=== PATIENT | female | born 1935 | race Caucasian/White ===

== ENCOUNTER 2019-08-11 14:37 | Inpatient (IN) | payer MEDICARE, OTHER ==
[~2019-08-11] VITALS: Ht 167.6 cm; Wt 77.8 kg
--- OUTSIDE RECORDS SUMMARY | ~2019-08-11 | XMS | Clinical Summary ---
Demographics + + + | Address | [address] | | | [place] [address] | + + + | Home Phone | | + + + | Preferred Language | Unknown | + + + | Marital Status | Unknown | + + + | Christian Affiliation | Unknown | + + + | Race | Unknown | + + + | Ethnic Group | Unknown | + + + Author + + + | Author | [facility] (Historical as of | | | 11-20-18) | + + + | Organization | [facility] (Historical as of | | | 11-20-18) | + + + | Address | Unknown | + + + | Phone | Unavailable | + + + Support + + +---------+ + | Name | Relationship | Address | Phone | + + +---------+ + | Message,Detailed | ECON | Unknown | | + + +---------+ + | Jose Bear | ECON | Unknown | | + + +---------+ + Care Team Providers + +------+ + | Care Sales Department Manager Name | Role | Phone | + +------+ + | Rojelio Green MD | PP | | + +------+ + Allergies No Known Allergies Current Medications + + +-------+---------+------+------+-------+ | Prescription | Sig. | Disp. | Refills | Star | End | Statu | | | | | | t | Date | s | | | | | | Date | | | + + +-------+---------+------+------+-------+ | | Take 1 tablet by | | | 10/1 | | Activ | | acetaminophen-codein | mouth as needed. | | | 12/24 | | e | | e (TYLENOL #3) | | | | 16 | | | | 300-30 MG per tablet | | | | | | | + + +-------+---------+------+------+-------+ Active Problems + + + | Problem | Noted Date | + + + | CLL (chronic lymphocytic leukemia) | 02/07/2016 | + + + Family History + + +------+ + | Medical History | Relation | Name | Comments | + + +------+ + | Heart Disease | Father | | | + + +------+ + + +------+ + + | Relation | Name | Status | Comments | + +------+ + + | Father | | | | | | | (Age | | | | | 89) | | + +------+ + + | Maternal Grandfather | | | | + +------+ + + | Maternal Grandmother | | | | + +------+ + + | Mother | | | | + +------+ + + | Paternal Grandfather | | | | + +------+ + + | Paternal Grandmother | | | | + +------+ + + Social History + +-------+ +--------+------+ | Tobacco Use | Types | Packs/Day | Years | Date | | | | | Used | | + +-------+ +--------+------+ | Never Smoker | | | | | + +-------+ +--------+------+ + + +---------+ + | Alcohol Use | Drinks/We | oz/Week | Comments | | | ek | | | + + +---------+ + | Yes | 1 | 0.6 | Occ | | | Standard | | | | | drinks or | | | | | | | | | | equivalen | | | | | t | | | + + +---------+ + + + + | Sex Assigned at | Date Recorded | | | | + + + | Not on file | | + + + Last Filed Vital Signs + + + + | Vital Sign | Reading | Time Taken | + + + + | Blood Pressure | 118/74 | 02/05/2016 3:17 PM PDT | + + + + | Pulse | 78 | 02/05/2016 3:17 PM PDT | + + + + | Temperature | 36.8 C (98.2 F) | 02/05/2016 3:17 PM PDT | + + + + | Respiratory Rate | 16 | 02/05/2016 3:17 PM PDT | + + + + | Oxygen Saturation | 94% | 02/05/2016 3:17 PM PDT | + + + + | Inhaled Oxygen | - | - | | Concentration | | | + + + + | Weight | 80.3 kg (177 lb 0.6 | 02/05/2016 3:17 PM PDT | | | oz) | | + + + + | Height | 167.6 cm (5' 6") | 02/05/2016 3:17 PM PDT | + + + + | Body Mass Index | 28.58 | 02/05/2016 3:17 PM PDT | + + + + Plan of Treatment + + + + + | Health Maintenance | Due Date | Last Done | Comments | + + + + + | Vaccine: | | | | | Dtap/Tdap/Td (1 - | 7 | | | | Tdap) | | | | + + + + + | Vaccine: Zoster (1 | | | | | of 2) | 8 | | | + + + + + | DEXA SCAN SCREENING | | | | | | 3 | | | + + + + + | Vaccine: | | | | | Pneumococcal 65+ | 3 | | | | Low/Medium Risk (1 | | | | | of 2 - PCV13) | | | | + + + + + | Vaccine: Influenza | | | | | (Season Ended) | 0 | | | + + + + + Results Not on filefrom Last 3 Months Insurance + +--------+ +------+-------+ + | Payer | Benefi | Subscriber | Type | Phone | Address | | | t Plan | ID | | | | | | / | | | | | | | Group | | | | | + +--------+ +------+-------+ + | CIGNA | CIGNA | [id number] | | | | | | - | | | | | | | GENERI | | | | | | | C | | | | | + +--------+ +------+-------+ + | MEDICARE | MEDICA | [id number] | | | [address] | | | RE | | | | [place] [address] | | | IP-OP | | | | | + +--------+ +------+-------+ + + +--------+ +--------+ + + | Guarantor Name | Accoun | Relation to | Date | Phone | Billing Address | | | t Type | Patient | of | | | | | | | | | | + +--------+ +--------+ + + | NAINA BEAR | Person | Self | [birth year] | Home: | [address] | | | al/Fam | | 1936 | [phone] | [place] [address] | | | candy | | | [phone] | | + +--------+ +--------+ + +
--- OUTSIDE RECORDS SUMMARY | ~2019-08-11 | XMS | Encounter Summary ---
Demographics + + + | Address | [address] | | | [place] [address] | + + + | Home Phone | | + + + | Preferred Language | Unknown | + + + | Marital Status | Single | + + + | Yarsani Affiliation | Unknown | + + + | Race | Unknown | + + + | Ethnic Group | Other Race | + + + Author + + + | Author | [facility] | + + + | Organization | [facility] | + + + | Address | Unknown | + + + | Phone | Unavailable | + + + Care Team Providers + +------+ + | Care Residential Worker Name | Role | Phone | + +------+ + PCP | Unavailable | + +------+ + Encounter Details +--------+ + + + + | Date | Type | Department | Care Team | Description | +--------+ + + + + | 12/10/ | Hospital | Dermatopathology | | | | 2017 | Encounter | [address] | | | | | | Mailcode: CH16D | | | | | | [facility] | | | | | | and Healing, | | | | | | [address] | | | | | | Floor [place], [place] | | | | | | [address] | | | | | | [phone] | | | +--------+ + + + [...] on file | | + + + + + + + | Job Start Date | Occupation | Industry | + + + + | Not on file | Not on file | Not on file | + + + + + + + + | Travel History | Travel Start | Travel End | + + + + + + | No recent travel history available. | + + documented as of this encounter Plan of Treatment Not on filedocumented as of this encounter Procedures + +--------+ + + + | Procedure Name | Priori | Date/Time | Associated Diagnosis | Comments | | | ty | | | | + +--------+ + + + | DERM PATHOLOGY | Routin | 12/10/2016 | Other specified | Results for this | | | e | | follicular disorders | procedure are in the | | | | | Other skin changes | results section. | | | | | due to chronic | | | | | | exposure to | | | | | | nonionizing | | | | | | radiation | | + +--------+ + + + documented in this encounter Results DERM PATHOLOGY (12/10/2016) + + + + + + | Component | Value | Ref Range | Performed | Pathologist | | | | | At | Signature | + + + + + + | DERMATOPATH | SOURCE OF SPECIMEN:A Lt. | | [facility] | | | OLOGY(WET | inferolateral eyebrow, | | DERMATOPATH | | | MNT) | shave biopsy | | OLOGY | | | | CLINICAL DESCRIPTION:6 x | | | | | | 5 mm pink | | | | | | telangiectatic centrally | | | | | | ulcerated papule with | | | | | | rolledborders; r/o BCC. | | | | | | GROSS | | | | | | DESCRIPTION:Received in | | | | | | formalin is a specimen | | | | | | labeled Naina Bear:A: | | | | | | Specimen is labeled "L | | | | | | inferolateral eyebrow" | | | | | | and consists of | | | | | | anirregular shave of | | | | | | papular white-gongora skin, | | | | | | [id number]. The surgical | | | | | | margin isinked blue; the | | | | | | tissue is bisected, and | | | | | | entirely submitted in | | | | | | cassette A1. | | | | | | MICROSCOPIC | | | | | | DESCRIPTION:There is a | | | | | | mildly thinned | | | | | | epidermis, beneath which | | | | | | is solar elastosis | | | | | | anddilated vessels. | | | | | | There is also a dilated | | | | | | follicular infundibulum. 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 | | | | | | NOTE: The changes | | | | | | are subtle, although the | | | | | | superficial portion of | | | | | | MILIUM ispossible. There | | | | | | is no evidence of | | | | | | malignancy. Deeper | | | | | | sections wereobtained, | | | | | | showing similar | | | | | | findings.KPW: [id number] | | | | | | My electronic | | | | | | signature indicates that | | | | | | I have personally | | | | | | reviewed alldiagnostic | | | | | | slides, the gross and/or | | | | | | microscopic portion of | | | | | | thisreport and | | | | | | formulated the final | | | | | | diagnosis. | | | | | | Rendering Diagnostician: | | | | | | Nabeel Acuna | | | | | | Sj | | | | | | lety Santana 12/15/2016 | | | | | | 4:51PM | | | | + + + + + + + + | Specimen | + + | | + + + + + | Narrative | Performed At | + + + | | | + + + + + + + + | Performing | Address | City/State/Zipcode | Phone Number | | Organization | | | | + + + + + | [facility] | Mail[address] | [place] [address] | | | DERMATOPATHOLOGY | [address] | | | + + + + + documented in this encounter Visit Diagnoses + + | Diagnosis | + + | Other specified follicular disorders | + + | Other skin changes due to chronic exposure to nonionizing radiation | + + documented in this encounter
--- OUTSIDE RECORDS SUMMARY | ~2019-08-11 | XMS | Encounter Summary ---
Demographics + + + | Address | [address] | | | [place] [address] | + + + | Home Phone | | + + + | Preferred Language | Unknown | + + + | Marital Status | | + + + | Druze Affiliation | 1076 | + + + | Race | Unknown | + + + | Ethnic Group | Unknown | + + + Author + + + | Author | [facility] | | | and [place] | + + + | Organization | [facility] | | | and [place] | + + + | Address | Unknown | + + + | Phone | Unavailable | + + + Support + + +---------+ + | Name | Relationship | Address | Phone | + + +---------+ + | Jose BENNETT | Unknown | | + + +---------+ + Care Team Providers + +------+ + | Care Chief Radiation Therapist Name | Role | Phone | + [...] 2015 | | [address] | [address] | | | | [address] | [place] | | | | | [address] | [place] [address] | | | | | [phone] | [phone] | | | | | | | [...] +--------+ + + + | EXTERNAL LAB: CBC | Routin | 02/05/2016 | | Results for this | | | e | 1:29 PM | | procedure are in the | | | | PDT | | results section. | + +--------+ + + + documented in this encounter Results External Lab: CBC (02/05/2016 1:29 PM PDT) + + + [...] + + + + + + | Red Blood | 4.61 | 3.70 - 5.10 | EXTERNAL | | | Cells | | 10*6/uL | LAB | | | Counted | | | [...]
--- OUTSIDE RECORDS SUMMARY | ~2019-08-11 | XMS | Encounter Summary ---
Demographics + + + | Address | [address] | | | [place] [address] | + + + | Home Phone | | + + + | Preferred Language | Unknown | + + + | Marital Status | Single | + + + | Presybeterian Affiliation | Unknown | + + + | Race | Unknown | + + + | Ethnic Group | Other Race | + + + Author + + + | Author | [facility] | + + + | Organization | [facility] | + + + | Address | Unknown | + + + | Phone | Unavailable | + + + Care Team Providers + +------+ + | Care Regional Geodetic Advisor Name | Role | Phone | + +------+ + PCP | Unavailable | + +------+ + Encounter Details +--------+ + + + + | Date | Type | Department | Care Team | Description | +--------+ + + + + | 10/21/ | Documentati | NON-[facility] | Unknown . | | | 2019 | on | Department | | | +--------+ + + + [...]
--- OUTSIDE RECORDS SUMMARY | ~2019-08-11 | XMS | Encounter Summary ---
Demographics + + + | Address | [address] | | | [place] [address] | + + + | Home Phone | | + + + | Preferred Language | Unknown | + + + | Marital Status | Single | + + + | Advent Affiliation | Unknown | + + + | Race | Unknown | + + + | Ethnic Group | Other Race | + + + Author + + + | Author | [facility] | + + + | Organization | Replaced By [facility] | + + + | Address | Unknown | + + + | Phone | Unavailable | + + + Care Team Providers + +------+ + | Care Automatic Profile Sander Operator Name | Role | Phone | [...]
--- OUTSIDE RECORDS SUMMARY | ~2019-08-11 | XMS | Encounter Summary ---
Demographics + + + | Address | [address] | | | [place] [address] | + + + | Home Phone | | + + + | Preferred Language | Unknown | + + + | Marital Status | | + + + | Episcopal Affiliation | 1076 | + + + | Race | Unknown | + + + | Ethnic Group | Unknown | + + + Author + + + | Author | [facility] | | | and [place] | + + + | Organization | [facility] | | | and [...] Team Providers + +------+ + | Care Installers Mechanical Name | Role | Phone | + +------+ + PCP | Unavailable | + +------+ + Encounter Details +--------+ + + + + | Date | Type | Department | Care Team | Description | +--------+ + + + + | 10/29/ | Hospital | [facility] | | | | 1999 | Encounter | MED CTR XRAY [address] | | | | | | [address] | | | | | | [place] [address] | | | | | | [phone] | | | +--------+ + + + [...]
--- OUTSIDE RECORDS SUMMARY | ~2019-08-11 | XMS | Clinical Summary ---
Demographics + + + | Address | [address] | | | [place] [address] | + + + | Home Phone | | + + + | Preferred Language | Unknown | + + + | Marital Status | | + + + | Catholic Affiliation | 1076 | + + + | Race | Unknown | + + + | Ethnic Group | Unknown | + + + Author + + + | Author | [facility] | | | and [place] | + + + | Organization | [facility] | | | [...] Team Providers + +------+ + | Care Acid Cutter Name | Role | Phone | + +------+ + | Cornelius Fyo | PCP | | | MD | | | + +------+ + Allergies Not on File Medications Not on file Active Problems Not on file Family History + + +------+ + | Medical History | Relation | Name | Comments | + + +------+ + | Heart disease | Father | | | + + +------+ + + +------+ + + | Relation | Name | Status | Comments | + +------+ + + | Father | | | | | | | (Age | | | | | 89) | | + +------+ + + | Father | | | | + +------+ + [...] recent travel history available. | + + Last Filed Vital Signs + + + + + | Vital Sign | Reading | Time Taken | Comments | + + + + + | Blood Pressure | 118/74 | 02/05/2016 3:24 PM | | | | | PDT | | + + + + + | Pulse | 78 | 02/05/2016 3:24 PM | | | | | PDT | | + + + + + | Temperature | 36.8 C (98.2 F) | 02/05/2016 3:24 PM | | | | | PDT | | + + + + + | Respiratory Rate | 16 | 02/05/2016 3:24 PM | | | | | PDT | | + + + + + | Oxygen Saturation | - | - | | + + + + + | Inhaled Oxygen | - | - | | | Concentration | | | | + + + + + | Weight | 80.3 kg (177 lb 0.6 | 02/05/2016 3:24 PM | | | | oz) | PDT | | + + + + + | Height | 167.6 cm (5' 6") | 02/05/2016 3:24 PM | | | | | PDT | | + + + + + | Body Mass Index | 28.57 | 02/05/2016 3:24 PM | | | | | PDT | | + + + + + Plan of Treatment + + + + + | Health Maintenance | Due Date | Last Done | Comments | + + + + + | Vaccine: | | | | | Dtap/Tdap/Td (1 - | 9 | | | | Tdap) | | | | + + + + + | Vaccine: Zoster (1 | | | | | of 2) | 8 | | | + + + + + | Vaccine: | | | | | Pneumococcal 65+ (1 | 3 | | | | of 2 - PCV13) | | | | + + + + + | Vaccine: Influenza | | | | | (Season Ended) | 0 | | | + + + + + Results Not on filefrom Last 3 Months Insurance + +--------+ +--------+ +---------+--------+ | Payer | Benefi | Subscriber | Effect | Phone | Address | Type | | | t Plan | ID | laine | | | | | | / | | Dates | | | | | | Group | | | | | | + +--------+ +--------+ +---------+--------+ | MEDICARE | MEDICA | [id number] | 07/06/19 | [phone] | | Medica | | | RE | | 15-Pre | 5 | | re | | | PART A | | sent | | | | | | AND B | | | | | | + +--------+ +--------+ +---------+--------+ | CIGNA | CIGNA | [id number] | 01/26/ | [phone] | | Indemn | | | MDCR | | 2019-P | 1 | | ity | | | SUPPLE | | resent | | | | | | MENT | | | | | | | | SOLUTI | | | | | | | | ONS | | | | | | + +--------+ +--------+ +---------+--------+ + +--------+ +--------+ + + | Guarantor Name | Accoun | Relation to | Date | Phone | Billing Address | | | t Type | Patient | of | | | | | | | | | | + +--------+ +--------+ + + | Naina Bear | Person | Self | [birth year] | | [address] | | | al/Fam | | 1936 | [phone] | [place] [address] | | | candy | | | 4 (Home) | | + +--------+ +--------+ + + Advance Directives + + + + + | Type | Date Recorded | Patient | Explanation | | | | Metal Temperer | | + + + + + | Power of | | | | | Director Life Insurance | | | | + + + + + | Advance | | | | | Directive | | | | + + + + +
--- OUTSIDE RECORDS SUMMARY | ~2019-08-11 | XMS | Encounter Summary ---
Demographics + + + | Address | [address] | | | [place] [address] | + + + | Home Phone | | + + + | Preferred Language | Unknown | + + + | Marital Status | | + + + | Worship Affiliation | 1076 | + + + | Race | Unknown | + + + | Ethnic Group | Unknown | + + + Author + + + | Author | [facility] | | | and [place]ias | + + + | Organization | [facility] | | | [...] Team Providers + +------+ + | Care Cellophaner Name | Role | Phone | + +------+ + | Cornelius Foy | PCP | | | MD | | | + +------+ + Encounter Details +--------+ + + + + | Date | Type | Department | Care Team | Description | +--------+ + + + + | 02/04/ | Orders Only | [place] [facility] | oRjelio Green, | | | 2015 | | [address] | [address] | | | | [address] | [place] | | | | | [address] | [place] [address] | | | | | [phone] | [phone] | | | | | | | [...]
--- OUTSIDE RECORDS SUMMARY | ~2019-08-11 | XMS | Encounter Summary ---
Demographics + + + | Address | [address] | | | [place] [address] | + + + | Home Phone [...] Author + + + | Author | [facility] | + + + | Organization | [facility] | + + + | Address | Unknown | + + + | Phone | Unavailable | + + + Care Team Providers + +------+ + | Care Client Relationship Executive Name | Role | Phone | + [...] [facility] | | | | | | [facility] | | | | | | and Healing, | | | | | | Building [address], [address] | | | | | | Floor [place], [place] | | | | | | [address] | | | | | | [phone] | | | +--------+ + + + [...] skin, | | | | | | [id number]. The surgical | | | | | [...] [facility] | Mailcode [address] | [place] [address] | | | DERMATOPATHOLOGY | [address] | | | + + + + + documented in this encounter Visit Diagnoses + + | Diagnosis | + + | Other specified follicular disorders | + + | Other skin changes due to chronic exposure to nonionizing radiation | + + documented in this encounter
--- OUTSIDE RECORDS SUMMARY | ~2019-08-11 | XMS | Clinical Summary ---
Demographics + + + | Address | [address] | | | [place] [address] | + + + | Home Phone | | + + + | Preferred Language | Unknown | + + + | Marital Status | | + + + | Christian Affiliation | 1076 | + + + | Race | Unknown | + + + | Ethnic Group | Unknown | + + + Author + + + | Author | [facility] | | | and [place]ias | + + + | Organization | [facility] | | | and [...] Team Providers + +------+ + | Care Gericare Aide Teacher Name | Role | Phone | + [...] +--------+ +---------+--------+ | MEDICARE | MEDICA | [id number] | 07/06/19 | [phone] | | Medica | | | RE | | 15-Pre | 5 | | re | | | PART A | | sent | | | | | | AND B | | | | | | + +--------+ +--------+ +---------+--------+ | CIGNA | CIGNA | [id number] | 01/26/ | [phone] | | Indemn [...] Person | Self | [birth year] | | [address] | | | al/Fam | | 1936 | [phone] | [place] [address] | | | candy | | | 4 (Home) | | + +--------+ +--------+ + + Advance Directives + + + + + | Type | Date Recorded | Patient | Explanation | | | | Deckhand Engineer | | + + + + + | Power of | | | | | Blanket Folder | | | | + + + + + | Advance | | | | | Directive | | | | + + + + +
--- OUTSIDE RECORDS SUMMARY | ~2019-08-11 | XMS | Encounter Summary ---
Demographics + + + | Address | [address] | | | [place] [address] | + + + | Home Phone | | + + + | Preferred Language | Unknown | + + + | Marital Status | | + + + | Spiritism Affiliation | 1076 | + + + | Race | Unknown | + + + | Ethnic Group | Unknown | + + + Author + + + | Author | [facility] | | | and [place]ias | + + + | Organization | [facility] | | [...] Team Providers + +------+ + | Care Engineering Designer Name | Role | Phone | + +------+ + PCP | Unavailable | + +------+ + Encounter Details +--------+ + + + + | Date | Type | Department | Care Team | Description | +--------+ + + + + | 10/29/ | Hospital | [facility] | | | | 1999 | Encounter | MED CTR XRAY [address] | | | | | | [place] | | | | | | [place] [address] | | | | | | [phone] | | | +--------+ + + + [...]
--- OUTSIDE RECORDS SUMMARY | ~2019-08-11 | XMS | Clinical Summary ---
Demographics + + + | Address | [address] | | | [place] [address] | + + + | Home Phone | | + + + | Preferred Language | Unknown | + + + | Marital Status | Unknown | + + + | Yazdanism Affiliation | Unknown | + + + | Race | Unknown | + + + | Ethnic Group | Unknown | + + + Author + + + | Author | [facility] (Historical as of | | | 11-20-18) | + + + | Organization | [facility] (Historical as of | | | 11-20-18) [...] Team Providers + +------+ + | Care Parking Control Officer Name | Role | Phone | + [...] +------+-------+ + | CIGNA | CIGNA | [id number] | | | | | | - | | | | | | | GENERI | | | | | | | C | | | | | + +--------+ +------+-------+ + | MEDICARE | MEDICA | [id number] | | | [address] | | | RE | | | | [place] [phone] | | | IP-OP | | | [...] | Self | [birth year] | Home: | [address] | | | al/Fam | | 1936 | [phone] | [place] [address] | | | candy | | | [phone] | | + +--------+ +--------+ + +
--- OUTSIDE RECORDS SUMMARY | ~2019-08-11 | XMS | Encounter Summary ---
Demographics + + + | Address | [address] | | | [place] [address] | + + + | Home Phone | | + + + | Preferred Language | Unknown | + + + | Marital Status | Single | + + + | Quaker Affiliation | Unknown | + + + | Race | Unknown | + + + | Ethnic Group | Other Race | + + + Author + + + | Author | [facility] | + + + | Organization | [facility] | + + + | Address | Unknown | + + + | Phone | Unavailable | + + + Care Team Providers + +------+ + | Care Greenstone Polisher Operator Name | Role | Phone | [...]
--- OUTSIDE RECORDS SUMMARY | ~2019-08-11 | XMS | Encounter Summary ---
Demographics + + + | Address | [address] | | | [place] [address] | + + + | Home Phone | | + + + | Preferred Language | Unknown | + + + | Marital Status | Single | + + + | Anabaptism Affiliation | Unknown | + + + | Race | Unknown | + + + | Ethnic Group | Other Race | + + + Author + + + | Author | [facility] | + + + | Organization | [facility] | + + + | Address | Unknown | + + + | Phone | Unavailable | + + + Care Team Providers + +------+ + | Care Finish Mender Name | Role | Phone | + [...]
--- OUTSIDE RECORDS SUMMARY | ~2019-08-11 | XMS | Encounter Summary ---
Demographics + + + | Address | [address] | | | [place] [address] | + + + | Home Phone | | + + + | Preferred Language | Unknown | + + + | Marital Status | Single | + + + | Episcopal Affiliation | Unknown | + + + | Race | Unknown | + + + | Ethnic Group | Other Race | + + + Author + + + | Author | [facility] | + + + | Organization | [facility] | + + + | Address | Unknown | + + + | Phone | Unavailable | + + + Care Team Providers + +------+ + | Care 21 Dealer Name | Role | Phone | + [...]
--- OUTSIDE RECORDS SUMMARY | ~2019-08-11 | XMS | Clinical Summary ---
Demographics + + + | Address | [address] | | | [place] [address] | + + + | Home Phone | | + + + | Preferred Language | Unknown | + + + | Marital Status | Unknown | + + + | Uatsdin Affiliation | Unknown | + + + | Race | Unknown | + + + | Ethnic Group | Unknown | + + + Author + + + | Author | [facility] [employer] (Historical as of | | | 11-20-18) | + + + | Organization | [facility] [employer] (Historical as of | | | 11-20-18) [...] Team Providers + +------+ + | Care Export Freight Manager Name | Role | Phone | [...] +------+-------+ + | CIGNA | CIGNA | [id number] | | | | | | - | | | | | | | GENERI | | | | | | | C | | | | | + +--------+ +------+-------+ + | MEDICARE | MEDICA | [id number] | | | [address] | | | RE | | | | [place] [address] | | | IP-OP | | | [...] | Self | [birth year] | Home: | [address] | | | al/Fam | | 1936 | [phone] | [place] [address] | | | candy | | | [phone] | | + +--------+ +--------+ + +
--- OUTSIDE RECORDS SUMMARY | ~2019-08-11 | XMS | Clinical Summary ---
Demographics + + + | Address | [address] | | | [place] [address] | + + + | Home Phone | | + + + | Preferred Language | Unknown | + + + | Marital Status | Single | + + + | Latter Day Affiliation | Unknown | + + + | Race | Unknown | + + + | Ethnic Group | Other Race | + + + Author + + + | Author | JOZEF Terry [facility] | + + + | Organization | [facility] | + + + | Address | Unknown | + + + | Phone | Unavailable | + + + Care Team Providers + +------+ + | Care Flask Pusher Name | Role | Phone | + +------+ + PCP | Unavailable | + +------+ + Source Comments JOZEF is fully live on both [facility] and [facility] InPatient.[facility] Allergies Not on File Medications Not on file Active Problems Not on file Social History + +-------+ +--------+------+ | Tobacco [...] | + + Last Filed Vital Signs Not on file Plan of Treatment Not on file Results Not on filefrom Last 3 Months Insurance + +--------+ +--------+ + +--------+ | Payer | Benefi | Subscriber | Effect | Phone | Address | Type | | | t Plan | ID | laine | | | | | | / | | Dates | | | | | | Group | | | | | | + +--------+ +--------+ + +--------+ | MEDICARE | MEDICA | xxxxxxxxxx | 08/05/19 | [phone] | [address] | Medica | | | RE A & | | 03-Pre | 1 | [id number] | re | | | B | | sent | | [place] | | | | | | | | [address] | | + +--------+ +--------+ + +--------+ | COMMERCIAL | INDIVI | [id number] | 04/06/19 | | | Indemn | | INDIVIDUAL | DUAL | | 15-Pre | | | ity | | | COMMER | | sent | | | | | | CIAL | | | | | | + +--------+ +--------+ + +--------+ + +--------+ +--------+ + + | Guarantor Name | Accoun | Relation to | Date | Phone | Billing Address | | | t Type | Patient | of | | | | | | | | | | + +--------+ +--------+ + + | Naina Bear | Person | Self | [birth year] | | [address] | | | al/Fam | | 1936 | [phone] | [place] [address] | | | candy | | | 4 (Home) | | + +--------+ +--------+ + +"
--- OUTSIDE RECORDS SUMMARY | ~2019-08-11 | XMS | Encounter Summary ---
Demographics + + + | Address | [address] | | | [place] [address] | + + + | Home Phone | | + + + | Preferred Language | Unknown | + + + | Marital Status | | + + + | Denominational Affiliation | 1076 | + + + | Race | Unknown | + + + | Ethnic Group | Unknown | + + + Author + + + | Author | [facility] | | | and Tobias | + + + | Organization | [facility] | | | and [...] Team Providers + +------+ + | Care Bone Density Technician Name | Role | Phone | + [...] [address] | | | | [place] | [place] | | | | | [address] | [place] [address] | | | | | [phone] | [phone] | | | | | | | [...]
--- OUTSIDE RECORDS SUMMARY | ~2019-08-11 | XMS | Encounter Summary ---
Demographics + + + | Address | [address] | | | [place] [address] | + + + | Home Phone | | + + + | Preferred Language | Unknown | + + + | Marital Status | Single | + + + | Roman Catholic Affiliation | Unknown | + + + | Race | Unknown | + + + | Ethnic Group | Other Race | + + + Author + + + | Author | [facility] | + + + | Organization | [facility] | + + + | Address | Unknown | + + + | Phone | Unavailable | + + + Care Team Providers + +------+ + | Care Inspector Cold Working Name | Role | Phone | + [...] [address] | | | | | | [facility] | | | | | | and Healing, | | | | | | Building [address], [address]th | | | | | | Floor [place], [place] | | | | | | [address] | | | | | | [phone] | | | +--------+ + + + [...] Received: | | | | | | [id number] x 2 | | | | | | slides. Bertrand Klein | | | | | | DBraulio: | | | | | | Thank [...] Returned: | | | | | | [id number] x 2 | | | | | | slides. | | | | | | KPW:emr09/02/12 | | | | | | ADDENDUM:A: [...] Acuna | | | | | | M.Esperanza.PathologistElectroni | | | | | | lety [...] | + + + + + | JOZEF | [address] | [place] [address] | | | DERMATOPATHOLOGY | [address] | | | + + + + + documented in this encounter Visit Diagnoses Not on filedocumented in this encounter"
--- OUTSIDE RECORDS SUMMARY | ~2019-08-11 | XMS | Encounter Summary ---
Demographics + + + | Address | [address] | | | [place] [address] | + + + | Home Phone | | + + + | Preferred Language | Unknown | + + + | Marital Status | Single | + + + | Bahai Affiliation | Unknown | + + + | Race | Unknown | + + + | Ethnic Group | Other Race | + + + Author + + + | Author | [facility] | + + + | Organization | [facility] | + + + | Address | Unknown | + + + | Phone | Unavailable | + + + Care Team Providers + +------+ + | Care Carpet Installer Helper Name | Role | Phone | + [...] [address] | | | | | | [facility] | | | | | | and Healing, | | | | | | Building [address] | | | | | | Floor [place], [place] | | | | | | [address] | | | | | | [phone] | | | +--------+ + + + [...] Received: | | | | | | [id number] x 2 | | | | | [...] Returned: | | | | | | [id number] x 2 | | | | | [...] JOZEF | [address] | [place] [address] | | | DERMATOPATHOLOGY | [address] | | | + + + + + documented in this encounter Visit Diagnoses Not on filedocumented in this encounter"
--- OUTSIDE RECORDS SUMMARY | ~2019-08-11 | XMS | Clinical Summary ---
Demographics + + + | Address | [address] | | | [place] [address] | + + + | Home Phone | | + + + | Preferred Language | Unknown | + + + | Marital Status | Single | + + + | Gnosticist Affiliation | Unknown | + + + | Race | Unknown | + + + | Ethnic Group | Other Race | + + + Author + + + | Author | JOZEF Terry [facility] | + + + | Organization | [facility] | + + + | Address | Unknown | + + + | Phone | Unavailable | + + + Care Team Providers + +------+ + | Care Hairspring Fabrication Supervisor Name | Role | Phone | + +------+ + PCP | Unavailable | + +------+ + Source Comments JOZEF is fully live on both [facility] Ambulatory and [facility] InPatient.[facility] Allergies Not on File Medications Not on [...] | | | | | | | [address] | | + +--------+ +--------+ + +--------+ [...] Person | Self | [birth year] | | [address] | | | al/Fam | | 1936 | [phone] | [place] [address] | | | candy | | | 4 (Home) | | + +--------+ +--------+ + +"
--- OUTSIDE RECORDS SUMMARY | ~2019-08-11 | XMS | Encounter Summary ---
Demographics + + + | Address | [address] | | | [place] [address] | + + + | Home Phone [...] Author + + + | Author | [facility] | + + + | Organization | [facility] | + + + | Address | Unknown | + + + | Phone | Unavailable | + + + Care Team Providers + +------+ + | Care Automobile Relocation Engineer Name | Role | Phone | + [...] [address] | | | | | | [facility] | | | | | | and Healing, | | | | | | Building [address], [address]th | | | | | | Floor [place], [place] | | | | | | [address] | | | | | | [phone] | | | +--------+ + + + [...] Received: | | | | | | [id number] x 2 | | | | | [...] Returned: | | | | | | [id number] x 2 | | | | | [...] JOZEF | [address] | [place] [address] | | | DERMATOPATHOLOGY | [address] | | | + + + + + documented in this encounter Visit Diagnoses Not on filedocumented in this encounter"
--- OUTSIDE RECORDS SUMMARY | ~2019-08-11 | XMS | Encounter Summary ---
Demographics + + + | Address | [address] | | | [place] [address] | + + + | Home Phone [...] Author + + + | Author | [facility] | + + + | Organization | [facility] | + + + | Address | Unknown | + + + | Phone | Unavailable | + + + Care Team Providers + +------+ + | Care Insecticide Supervisor Name | Role | Phone | [...]
--- OUTSIDE RECORDS SUMMARY | ~2019-08-11 | XMS | Clinical Summary ---
Demographics + + + | Address | [address] | | | [place] [address] | + + + | Home Phone | | + + + | Preferred Language | Unknown | + + + | Marital Status | | + + + | Scientologist Affiliation | 1076 | + + + | Race | Unknown | + + + | Ethnic Group | Unknown | + + + Author + + + | Author | [facility] | | | and Tobias | + + + | Organization | [facility] | | | [...] Team Providers + +------+ + | Care Clinical Data Research Name | Role | Phone | + [...] +--------+ +---------+--------+ | MEDICARE | MEDICA | [id number] | 07/06/19 | [phone] | | Medica | | | RE | | 15-Pre | 5 | | re | | | PART A | | sent | | | | | | AND B | | | | | | + +--------+ +--------+ +---------+--------+ | CIGNA | CIGNA | [id number] | 01/26/ | [phone] | | Indemn [...] Person | Self | [birth year] | | [address] | | | al/Fam | | 1936 | [phone] | [place] [address] | | | candy | | | 4 (Home) | | + +--------+ +--------+ + + Advance Directives + + + + + | Type | Date Recorded | Patient | Explanation | | | | Seed Technician | | + + + + + | Power of | | | | | Element Winding Machine Tender | | | | + + + + + | Advance | | | | | Directive | | | | + + + + +
--- OUTSIDE RECORDS SUMMARY | ~2019-08-11 | XMS | Encounter Summary ---
Demographics + + + | Address | [address] | | | [place] [address] | + + + | Home Phone | | + + + | Preferred Language | Unknown | + + + | Marital Status | | + + + | Evangelical Affiliation | 1076 | + + + | Race | Unknown | + + + | Ethnic Group | Unknown | + + + Author + + + | Author | [facility] | | | and Tobias | + + + | Organization | [facility] | | | [...] Team Providers + +------+ + | Care Entertainment Dancer Name | Role | Phone | + +------+ + PCP | Unavailable | + +------+ + Encounter Details +--------+ + + + + | Date | Type | Department | Care Team | Description | +--------+ + + + + | 10/29/ | Hospital | [facility] | | | | 1999 | Encounter | MED CTR XRAY [address] | | | | | | [place] | | | | | | [place] [address] | | | | | | [phone] | | | +--------+ + + + [...]
--- OUTSIDE RECORDS SUMMARY | ~2019-08-11 | XMS | Encounter Summary ---
Demographics + + + | Address | [address] | | | [place] [address] | + + + | Home Phone | | + + + | Preferred Language | Unknown | + + + | Marital Status | | + + + | Temple Affiliation | 1076 | + + + | Race | Unknown | + + + | Ethnic Group | Unknown | + + + Author + + + | Author | [facility] | | | and Tobias | + + + | Organization | [facility] | | | [...] Team Providers + +------+ + | Care Floating Labor Gang Supervisor Name | Role | Phone | + +------+ + PCP | Unavailable | + +------+ + Encounter Details +--------+ + + + + | Date | Type | Department | Care Team | Description | +--------+ + + + + | 10/29/ | Hospital | [facility] | | | | 1999 | Encounter | MED CTR XRAY [address] | | | | | | [place] | | | | | | [place] [address] | | | | | | [phone] | | | +--------+ + + + [...]
--- OUTSIDE RECORDS SUMMARY | ~2019-08-11 | XMS | Encounter Summary ---
Demographics + + + | Address | [address] | | | [place] [address] | + + + | Home Phone | | + + + | Preferred Language | Unknown | + + + | Marital Status | Single | + + + | Oriental Orthodox Affiliation | Unknown | + + + | Race | Unknown | + + + | Ethnic Group | Other Race | + + + Author + + + | Author | [facility] | + + + | Organization | [facility] | + + + | Address | Unknown | + + + | Phone | Unavailable | + + + Care Team Providers + +------+ + | Care Accounting Software Specialist Name | Role | Phone | + [...] [address] | | | | | | [facility] | | | | | | and Healing, | | | | | | Building [address], [address] | | | | | | Floor [place], [place] | | | | | | [address] | | | | | | [phone] | | | +--------+ + + + [...] Received: | | | | | | [id number] x 2 | | | | | [...] Returned: | | | | | | [id number] x 2 | | | | | [...] JOZEF | [address] | [place] [address] | | | DERMATOPATHOLOGY | [address] | | | + + + + + documented in this encounter Visit Diagnoses Not on filedocumented in this encounter"
--- OUTSIDE RECORDS SUMMARY | ~2019-08-11 | XMS | Encounter Summary ---
Demographics + + + | Address | [address] | | | [place] [address] | + + + | Home Phone | | + + + | Preferred Language | Unknown | + + + | Marital Status | Single | + + + | Catholic Affiliation | Unknown | + + + | Race | Unknown | + + + | Ethnic Group | Other Race | + + + Author + + + | Author | [facility] | + + + | Organization | [facility] | + + + | Address | Unknown | + + + | Phone | Unavailable | + + + Care Team Providers + +------+ + | Care Rn Transfer Name | Role | Phone | + [...]
--- OUTSIDE RECORDS SUMMARY | ~2019-08-11 | XMS | Encounter Summary ---
Demographics + + + | Address | [address] | | | [place] [address] | + + + | Home Phone | | + + + | Preferred Language | Unknown | + + + | Marital Status | Single | + + + | Jew Affiliation | Unknown | + + + | Race | Unknown | + + + | Ethnic Group | Other Race | + + + Author + + + | Author | [facility] | + + + | Organization | [facility] | + + + | Address | Unknown | + + + | Phone | Unavailable | + + + Care Team Providers + +------+ + | Care Cone Sewer Name | Role | Phone | + [...]
--- OUTSIDE RECORDS SUMMARY | ~2019-08-11 | XMS | Clinical Summary ---
Demographics + + + | Address | [address] | | | [place] [address] | + + + | Home Phone [...] + + | Author | JOZEF Terry [facility] | + + + | Organization | [facility] | + + + | Address | Unknown | + + + | Phone | Unavailable | + + + Care Team Providers + +------+ + | Care Sales Representative Church Furniture Name | Role | Phone | + +------+ + PCP | Unavailable | + +------+ + Source Comments JOZEF is fully live on both [facility] and [facility] In[facility] Allergies Not on File Medications Not on [...] | | | | | | | [address] | | + +--------+ +--------+ + +--------+ [...] Person | Self | [birth year] | | [address] | | | al/Fam | | 1936 | [phone] | [place] [address] | | | candy | | | 4 (Home) | | + +--------+ +--------+ + +"
--- OUTSIDE RECORDS SUMMARY | ~2019-08-11 | XMS | Encounter Summary ---
Demographics + + + | Address | [address] | | | [place] [address] | + + + | Home Phone | | + + + | Preferred Language | Unknown | + + + | Marital Status | Single | + + + | Anabaptist Affiliation | Unknown | + + + | Race | Unknown | + + + | Ethnic Group | Other Race | + + + Author + + + | Author | [facility] | + + + | Organization | [facility] | + + + | Address | Unknown | + + + | Phone | Unavailable | + + + Care Team Providers + +------+ + | Care Binding Stitcher Name | Role | Phone | + [...] [address] | | | | | | [facility] | | | | | | and Healing, | | | | | | Building [address], [address] | | | | | | Floor [place], [place] | | | | | | [address] | | | | | | [phone] | | | +--------+ + + + [...] skin, | | | | | | [id number]. 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
--- OUTSIDE RECORDS SUMMARY | ~2019-08-11 | XMS | Encounter Summary ---
Demographics + + + | Address | [address] | | | [place] [address] | + + + | Home Phone | | + + + | Preferred Language | Unknown | + + + | Marital Status | | + + + | Taoist Affiliation | 1076 | + + + | Race | Unknown | + + + | Ethnic Group | Unknown | + + + Author + + + | Author | [facility] | | | and Tobias | + + + | Organization | [facility] | | | and [...] Team Providers + +------+ + | Care Head Irrigator Name | Role | Phone | + [...] 2015 | | [address] | [address] | | | | [place] | [place] | | | | | [address] | [place] [address] | | | | | [phone] | [phone] | | | | | | | [...]
--- OUTSIDE RECORDS SUMMARY | ~2019-08-11 | XMS | Encounter Summary ---
Demographics + + + | Address | [address] | | | [place] [address] | + + + | Home Phone | | + + + | Preferred Language | Unknown | + + + | Marital Status | Single | + + + | Nondenominational Affiliation | Unknown | + + + | Race | Unknown | + + + | Ethnic Group | Other Race | + + + Author + + + | Author | [facility] | + + + | Organization | [facility] | + + + | Address | Unknown | + + + | Phone | Unavailable | + + + Care Team Providers + +------+ + | Care Sleeping Car Conductor Name | Role | Phone | + [...] [address] | | | | | | [facility] | | | | | | and Healing, | | | | | | Building [address], [address] | | | | | | Floor [place], [place] | | | | | | [address] | | | | | | [phone] | | | +--------+ + + + [...] skin, | | | | | | [id number]. 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
--- OUTSIDE RECORDS SUMMARY | ~2019-08-11 | XMS | Clinical Summary ---
Demographics + + + | Address | [address] | | | [place] [address] | + + + | Home Phone | | + + + | Preferred Language | Unknown | + + + | Marital Status | | + + + | Presybeterian Affiliation | 1076 | + + + | Race | Unknown | + + + | Ethnic Group | Unknown | + + + Author + + + | Author | [facility] | | | and Tobias | + + + | Organization | [facility] | | | [...] Team Providers + +------+ + | Care Compotype Operator Name | Role | Phone | [...] +--------+ +---------+--------+ | MEDICARE | MEDICA | [id number] | 07/06/19 | [phone] | | Medica | | | RE | | 15-Pre | 5 | | re | | | PART A | | sent | | | | | | AND B | | | | | | + +--------+ +--------+ +---------+--------+ | CIGNA | CIGNA | [id number] | 01/26/ | [phone] | | Indemn [...] Person | Self | [birth year] | | [address] | | | al/Fam | | 1936 | [phone] | [place] [address] | | | candy | | | 4 (Home) | | + +--------+ +--------+ + + Advance Directives + + + + + | Type | Date Recorded | Patient | Explanation | | | | Automobile Service Advisor | | + + + + + | Power of | | | | | [place] | | | | + + + + + | Advance | | | | | Directive | | | | + + + + +
--- OUTSIDE RECORDS SUMMARY | ~2019-08-11 | XMS | Clinical Summary ---
Demographics + + + | Address | [address] | | | [place] [address] | + + + | Home Phone | | + + + | Preferred Language | Unknown | + + + | Marital Status | Unknown | + + + | Mosque Affiliation | Unknown | + + + | Race | Unknown | + + + | Ethnic Group | Unknown | + + + Author + + + | Author | [facility] [employer] (Historical as of | | | 11-20-18) | + + + | Organization | [facility] [employer] (Historical as of | | | [...] Team Providers + +------+ + | Care Banking Services Clerk Name | Role | Phone | + [...] +------+-------+ + | CIGNA | CIGNA | [id number] | | | | | | - | | | | | | | GENERI | | | | | | | C | | | | | + +--------+ +------+-------+ + | MEDICARE | MEDICA | [id number] | | | [address] | | | RE | | | | [place] [id number] | | | IP-OP | | | [...] | Self | [birth year] | Home: | [address] | | | al/Fam | | 1936 | [phone] | [place] [address] | | | candy | | | [phone] | | + +--------+ +--------+ + +
--- OUTSIDE RECORDS SUMMARY | ~2019-08-11 | XMS | Clinical Summary ---
Demographics + + + | Address | [address] | | | [place] [address] | + + + | Home Phone | | + + + | Preferred Language | Unknown | + + + | Marital Status | Single | + + + | Mormon Affiliation | Unknown | + + + | Race | Unknown | + + + | Ethnic Group | Other Race | + + + Author + + + | Author | JOZEF Terry [facility] | + + + | Organization | [facility] | + + + | Address | Unknown | + + + | Phone | Unavailable | + + + Care Team Providers + +------+ + | Care Insurance Underwriter Name | Role | Phone | + +------+ + PCP | Unavailable | + +------+ + Source Comments JOZEF is fully live on both [facility] Ambulatory and [facility] InPatient.[facility] Allergies Not on File Medications [...] | | | | | | | [address] | | + +--------+ +--------+ + +--------+ [...] Person | Self | [birth year] | | [address] | | | al/Fam | | 1936 | [phone] | [place] [address] | | | candy | | | 4 (Home) | | + +--------+ +--------+ + +"
[~2019-08-11 14:37] MED LIST: PERCOCET 7.5-31 EACH PO
[2019-08-13] MEDS ORDERED: ACETAMINOPHEN-1 EAC1 PO (11:53)
[2019-08-14] MEDS ORDERED: DOXYCYCLINE HY100 MG PO (10:05)
== END 2019-08-14 11:26 | disposition home or self-care (01) | DRG 194 ==
LOC: ED 14:37 → CCU 14:39 → MS 19:53 → CCU 08-12 10:30 → MS 08-12 10:30
PROVIDERS: ADMIT Internal Medicine
DX: J13 Pneumonia due to Streptococcus pneumoniae (principal); C91.10 Chronic lymphocytic leukemia of B-cell type not having achieved remission; R09.02 Hypoxemia; I95.9 Hypotension, unspecified
CPT/HCPCS: 36415; 71045; 71260; 80048; 80053; 81001; 83605; 85025; 85610; 85730; 87088; 94761; 99285-25; J0456; J0692; J1650; J2405; J3480; J7030; J7060; Q9967

== ENCOUNTER 2019-12-01 09:49 | Inpatient (IN) | payer MEDICARE, OTHER ==
[~2019-12-01] VITALS: Ht 167.6 cm; Wt 72.6 kg
--- OUTSIDE RECORDS SUMMARY | ~2019-12-01 | XMS | Encounter Summary ---
Demographics + + + | Address | [address] [place] [address] ROAD | | | [place] [address] | + + + | Home Phone | | + + + | Preferred Language | Unknown | + + + | Marital Status | | + + + | Pentecostalism Affiliation | 1076 | + + + | Race | White | + + + | Ethnic Group | Not or | + + + Author + + + | Author | [facility] | | | and [place] | + + + | Organization | [facility] | | | and [place] | + + + | Address | Unknown | + + + | Phone | Unavailable | + + + Support + + +---------+ + | Name | Relationship | Address | Phone | + + +---------+ + | Jose Bear | ECON | Unknown | | + + +---------+ + Care Team Providers + +------+ + | Care Fishing Instructor Name | Role | Phone | + +------+ + PCP | Unavailable | + +------+ + Encounter Details +--------+ + + + + | Date | Type | Department | Care Team | Description | +--------+ + + + + | 10/29/ | Hospital | [facility] | | | | 1999 | Encounter | MED CTR XRAY [address] | | | | | | [address] | | | | | | [place] [address] | | | | | | [phone] | | | +--------+ + + + + Social History + +-------+ +--------+------+ | Tobacco Use | Types | Packs/Day | Years | Date | | | | | Used | | + +-------+ +--------+------+ | Never Assessed | | | | | + +-------+ +--------+------+ + + + | Sex Assigned at | Date Recorded | | | | + + + | Not on file | | + + + documented as of this encounter Plan of Treatment Not on filedocumented as of this encounter Visit Diagnoses Not on filedocumented in this encounter"
--- OUTSIDE RECORDS SUMMARY | ~2019-12-01 | XMS | Encounter Summary ---
Demographics + + + | Address | [address] [place] [address] ROAD | | | [place] [address] | + + + | Home Phone | | + + + | Preferred Language | Unknown | + + + | Marital Status | | + + + | Anabaptism Affiliation | 1076 | + + + | Race | White | + + + | Ethnic Group | Not or | + + + Author + + + | Author | [facility] | | | and [place] | + + + | Organization | [facility] | | | and [...] Team Providers + +------+ + | Care Freight Elevator Operator Name | Role | Phone | + +------+ + | Cornelius Foy | PCP | | | MD | | | + +------+ + Encounter Details +--------+ + + + + | Date | Type | Department | Care Team | Description | +--------+ + + + + | 02/04/ | Orders Only | [facility] | Rojelio Green, | | | 2015 | | [address] | [address] | | | | [address] | [address] [place] | | | | | [address] | [place] [address] | | | | | [phone] | [phone] | | | | | | | | +--------+ + + + [...] Not on filedocumented as of this encounter Procedures + +--------+ + + + | Procedure Name | Priori | Date/Time | Associated Diagnosis | Comments | | | ty | | | | + +--------+ + + + | EXTERNAL LAB: [facility] | Routin | 02/05/2016 | | Results for this | | | e | 1:29 PM | | procedure are in the | | | | PDT | | results section. | + +--------+ + + + documented in this encounter Results External Lab: [facility] (02/05/2016 1:29 PM PDT) + + + + + + | Component | Value | Ref Range | Performed | Pathologist | | | | | At | Signature | + + + + + + | WBC | 75.75 ()Comment: | 3.80 - 11.00 | EXTERNAL | | | | RESULT VERIFIED | 10*3/uL | LAB | | + + + + + + | Non- | 4.61 | 3.70 - 5.10 | EXTERNAL | | | Red Blood | | 10*6/uL | LAB | | | Cells | | | | | | Counted | | | | | + + + + + + | Hemoglobin | 13.7 | 11.3 - 15.5 | EXTERNAL | | | | | g/dL | LAB | | + + + + + + | Hematocrit, | 43.8 | 34.0 - 46.0 % | EXTERNAL | | | POC | | | LAB | | + + + + + + | MCV | 95.0 | 80.0 - 100.0 fL | EXTERNAL | | | | | | LAB | | + + + + + + | MCH | 29.6 | 27.0 - 34.0 pg | EXTERNAL | | | | | | LAB | | + + + + + + | MCHC | 31.2 (L) | 32.0 - 35.5 | EXTERNAL | | | | | g/dL | LAB | | + + + + + + | RDW-CV | 45.9 | 37 - 53 fL | EXTERNAL | | | | | | LAB | | + + + + + + | Platelet | 186 | 150 - 400 | EXTERNAL | | | Count | | 10*3/uL | LAB | | | Plasma | | | | | + + + + + + | MPV | 8.1 | fL | EXTERNAL | | | | | | LAB | | + + + + + + | Differentia | MANUAL | | EXTERNAL | | | l Type | | | LAB | | + + + + + + | Segmented | 8 | % | EXTERNAL | | | Neutrophils | | | LAB | | | Manual | | | | | + + + + + + | Lymphocytes | 85 | % | EXTERNAL | | | Manual | | | LAB | | + + + + + + | % Atypical | 6 | % | EXTERNAL | | | Lymphocytes | | | LAB | | + + + + + + | Monocytes | 1 | % | EXTERNAL | | | Manual | | | LAB | | + + + + + + | Absolute | 6.06 | 1.90 - 7.40 | EXTERNAL | | | Neutrophils | | 10*3/uL | LAB | | + + + + + + | Absolute | 64.38 (H) | 1.00 - 3.90 | EXTERNAL | | | Lymphocytes | | 10*3/uL | LAB | | + + + + + + | Absolute | 4.55 (H) | 10*3/uL | EXTERNAL | | | Atypical | | | LAB | | | Lymphocytes | | | | | + + + + + + | Absolute | 0.76 | 0.00 - 0.80 | EXTERNAL | | | Monocytes | | 10*3/uL | LAB | | + + + + + + | RBC | RBC AND PLT MORPHOLOGY | | EXTERNAL | | | Morphology | APPEAR NORMAL | | LAB | | + + + + + + | Differentia | SLIDE SCANNED, AGREES | | EXTERNAL | | | l Comments | WITH AUTOMATED RESULTS. | | LAB | | + + + + + + + + | Specimen | + + | Blood specimen | | (specimen) | + + + +---------+ + + | Performing | Address | City/State/Zipcode | Phone Number | | Organization | | | | + +---------+ + + | EXTERNAL LAB | | | | + +---------+ + + documented in this encounter Visit Diagnoses Not on filedocumented in this encounter"
--- OUTSIDE RECORDS SUMMARY | ~2019-12-01 | XMS | Encounter Summary ---
Demographics + + + | Address | [address] | | | [place] [address] | + + + | Home Phone | | + + + | Preferred Language | Unknown | + + + | Marital Status | Single | + + + | Sabianism Affiliation | Unknown | + + + | Race | Unknown | + + + | Ethnic Group | Other Race | + + + Author + + + | Author | [facility] | + + + | Organization | [facility] | + + + | Address | Unknown | + + + | Phone | Unavailable | + + + Care Team Providers + +------+ + | Care Senior Accounting Manager Name | Role | Phone | + +------+ + PCP | Unavailable | + +------+ + Encounter Details +--------+ + + + + | Date | Type | Department | Care Team | Description | +--------+ + + + + | 08/23/ | Hospital | Dermatopathology | | | | 2013 | Encounter | [address] | | | | | | Mailcode: CH16D | | | | | | [facility] | | | | | | and Healing, | | | | | | Building [address] | | | | | | Floor [place], [place] | | | | | | [address] | | | | | | [phone] | | | +--------+ + + + [...] + + documented as of this encounter Miscellaneous Notes Scan - Other, Faculty - 09/02/2012 2:46 PM PDTElectronically signed by Faculty Other at 2:46 PM PDTScan - Other, Faculty - 09/02/2012 2:46 PM PDT documented in this encounter Plan of Treatment Not on filedocumented as of this encounter Procedures + +--------+ + + + | Procedure Name | Priori | Date/Time | Associated Diagnosis | Comments | | | ty | | | | + +--------+ + + + | DERMATOPATHOLOGY(CON | Routin | 08/23/2012 | | Results for this | | SULT) | e | | | procedure are in the | | | | | | results section. | + +--------+ + + + documented in this encounter Results DERMATOPATHOLOGY(CONSULT) (08/23/2012) + + + + + + | Component | Value | Ref Range | Performed | Pathologist | | | | | At | Signature | + + + + + + | DERMATOPATH | THIS IS AN ADDENDUM | | [facility] | | | (CONSULT) | REPORT SOURCE OF | | DERMATOPATH | | | | SPECIMEN:A left upper | | OLOGY | | | | arm biopsySOURCE OF | | | | | | SPECIMEN:B left distal | | | | | | upper arm biopsy | | | | | | CLINICAL DESCRIPTION:A & | | | | | | B: R/o skin | | | | | | malignancy.Materials | | | | | | Received: | | | | | | [id number] x 2 | | | | | | slides. Dear | | | | | | Fred: | | | | | | Thank you for | | | | | | asking us to review | | | | | | Naina Bear's left upper | | | | | | arm biopsy(A) where | | | | | | there is compact | | | | | | hyperkeratosis overlying | | | | | | irregularlyhyperplastic | | | | | | epidermis which extends | | | | | | partially down | | | | | | follicular | | | | | | epithelium.There is | | | | | | abundant fibrosis | | | | | | throughout much of the | | | | | | upper and mid | | | | | | dermiswhere there is a | | | | | | dense infiltrate of | | | | | | lymphocytes and plasma | | | | | | cells, as wellas solar | | | | | | elastosis. In the | | | | | | left distal upper arm | | | | | | biopsy (B) there is an | | | | | | asymmetric, | | | | | | poorlycircumscribed | | | | | | neoplasm characterized | | | | | | by irregularly sized | | | | | | aggregates ofatypical | | | | | | epithelial cells within | | | | | | the upper dermis. The | | | | | | epithelial cellnuclei | | | | | | are pleomorphic and | | | | | | hyperchromatic and most | | | | | | of the cells | | | | | | haveeosinophilic | | | | | | cytoplasm. 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 | | | | | | Secondary changes | | | | | | predominate, many of | | | | | | them suggesting | | | | | | lichenification(PRURIGO | | | | | | NODULE). There is no | | | | | | definite evidence of a | | | | | | neoplasm in theinitial | | | | | | sections. Deeper | | | | | | sections will be | | | | | | obtained. 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 The | | | | | | squamous cell carcinoma | | | | | | extends to the | | | | | | peripheral and deep | | | | | | margins. Thank you | | | | | | for referring this | | | | | | consultation.Materials | | | | | | Returned: | | | | | | [id number] x 2 | | | | | | slides. | | | | | | KPW:emr5/30/13 | | | | | | ADDENDUM:A: Deeper | | | | | | sections through the | | | | | | left upper arm biopsy | | | | | | continue to showsimilar | | | | | | changes to the initial | | | | | | ones, some of them | | | | | | suggesting | | | | | | PRURIGONODULARIS. | | | | | | Specimen fragmentation | | | | | | makes interpretation | | | | | | challenging, and ifthe | | | | | | lesion persists or | | | | | | recurs, additional | | | | | | biopsy of it for | | | | | | furtherhistologic study | | | | | | is recommended. 1 | | | | | | additional slide and 1 | | | | | | block returned. | | | | | | KPW:emr09/06/12 My | | | | | | electronic signature | | | | | | indicates that I have | | | | | | personally reviewed | | | | | | alldiagnostic slides, | | | | | | the gross and/or | | | | | | microscopic portion of | | | | | | thisreport and | | | | | | formulated the final | | | | | | diagnosis. | | | | | | Rendering Diagnostician: | | | | | | Nabeel Acuna | | | | | | MohitPathologistElectroni | | | | | | lety Signed 09/06/2012 | | | | | | 4:18PM | | | | + + + + + + + + | Specimen | + + | | + + + + + + + | Performing | Address | City/State/Zipcode | Phone Number | | Organization | | | | + + + + + | [facility] | [address]code [address] | [place] [address] | | | DERMATOPATHOLOGY | [address] | | | + + + + + | [facility] | Mailcode [address] | [place] [address] | | | DERMATOPATHOLOGY | [address] | | | + + + + + documented in this encounter Visit Diagnoses Not on filedocumented in this encounter"
--- OUTSIDE RECORDS SUMMARY | ~2019-12-01 | XMS | Encounter Summary ---
Demographics + + + | Address | [address] [place] [address] ROAD | | | [place] [address] | + + + | Home Phone | | + + + | Preferred Language | Unknown | + + + | Marital Status | | + + + | Jewish Affiliation | 1076 | + + + | Race | White | + + + | Ethnic Group | Not or | + + + Author + + + | Author | [facility] | | | and [place] | + + + | Organization | [facility] | | | [...] Team Providers + +------+ + | Care Urologist Physician Name | Role | Phone | + +------+ + PCP | Unavailable | + +------+ + Encounter Details +--------+ + + + + | Date | Type | Department | Care Team | Description | +--------+ + + + + | 10/29/ | Hospital | [facility] | | | | 1999 | Encounter | MED CTR XRAY [address] | | | | | | [address] | | | | | | [place] [address] | | | | | | [phone] | | | +--------+ + + + [...]
--- OUTSIDE RECORDS SUMMARY | ~2019-12-01 | XMS | Encounter Summary ---
Demographics + + + | Address | [address] | | | [place] [address] | + + + | Home Phone | | + + + | Preferred Language | Unknown | + + + | Marital Status | Single | + + + | Yazidism Affiliation | Unknown | + + + | Race | Unknown | + + + | Ethnic Group | Other Race | + + + Author + + + | Author | [facility] | + + + | Organization | [facility] | + + + | Address | Unknown | + + + | Phone | Unavailable | + + + Care Team Providers + +------+ + | Care Settlement Worker Name | Role | Phone | [...]
--- OUTSIDE RECORDS SUMMARY | ~2019-12-01 | XMS | Encounter Summary ---
Demographics + + + | Address | [address] | | | [place] [address] | + + + | Home Phone | | + + + | Preferred Language | Unknown | + + + | Marital Status | Single | + + + | Restorationism Affiliation | Unknown | + + + | Race | Unknown | + + + | Ethnic Group | Other Race | + + + Author + + + | Author | [facility] | + + + | Organization | [facility] | + + + | Address | Unknown | + + + | Phone | Unavailable | + + + Care Team Providers + +------+ + | Care Exhaust Tender Name | Role | Phone | + [...] [address] | | | | | | [facility] | | | | | | and Healing, | | | | | | Building [address], [address] | | | | | | Floor [place], [place] | | | | | | [address] | | | | | | [phone] | | | +--------+ + + + [...] Received: | | | | | | [id number] x 2 | | | | | [...] Returned: | | | | | | [id number] x 2 | | | | | [...] [facility] | [address]code [address] | [place] [address] | | | DERMATOPATHOLOGY | [address] | | | + + + + + | [facility] | [address]code [address] | [place] [address] | | | DERMATOPATHOLOGY | [address] | | | + + + + + documented in this encounter Visit Diagnoses Not on filedocumented in this encounter"
--- OUTSIDE RECORDS SUMMARY | ~2019-12-01 | XMS | Clinical Summary ---
Demographics + + + | Address | [address] [place] [address] | | | [place] [address] | + + + | Home Phone | | + + + | Preferred Language | Unknown | + + + | Marital Status | | + + + | Episcopal Affiliation | 1076 | + + + | Race | White | + + + | Ethnic Group | Not or | + + + Author + + + | Author | [facility] | | | and [place] | + + + | Organization | [facility] | | | [...] Team Providers + +------+ + | Care Orthodontic Technician Assistant Name | Role | Phone | + [...] + + Plan of Treatment + + +-------+ + | Health Maintenance | Due Date | Last | Comments | | | | Done | | + + +-------+ + | Vaccine: | | | | | Dtap/Tdap/Td (1 - | 7 | | | | Tdap) | | | | + + +-------+ + | Vaccine: Zoster (1 | | | | | of 2) | 8 | | | + + +-------+ + | Vaccine: | | | | | Pneumococcal 65+ (1 | 3 | | | | of 1 - PPSV23) | | | | + + +-------+ + | Vaccine: Influenza | | | | | (#1) | 0 | | | + + +-------+ + Results Not on filefrom Last 3 [...] +--------+ +---------+--------+ | MEDICARE | MEDICA | [id number] | 07/06/19 | [phone] | | Medica | | | RE | | 15-Pre | 5 | | re | | | PART A | | sent | | | | | | AND B | | | | | | + +--------+ +--------+ +---------+--------+ | CIGNA | CIGNA | [id number] | 01/26/ | [phone] | | Indemn [...] Person | Self | [birth year] | [address] | | | al/Fam | | 1936 | [phone] | [place] [address] | | | candy | | | 4 (Home) | | + +--------+ +--------+ + + Advance Directives + + + + + | Type | Date Recorded | Patient | Explanation | | | | Paste Up Copy Camera Operator | | + + + + + | Power of | | | | | Horse Stud Worker | | | | + + + + + | Advance | | | | | Directive | | | | + + + + +
--- OUTSIDE RECORDS SUMMARY | ~2019-12-01 | XMS | Encounter Summary ---
Demographics + + + | Address | [address] | | | [place] [address] | + + + | Home Phone | | + + + | Preferred Language | Unknown | + + + | Marital Status | Single | + + + | Christian Affiliation | Unknown | + + + | Race | Unknown | + + + | Ethnic Group | Other Race | + + + Author + + + | Author | [facility] | + + + | Organization | [facility] | + + + | Address | Unknown | + + + | Phone | Unavailable | + + + Care Team Providers + +------+ + | Care Sales Broker Name | Role | Phone | + [...]
--- OUTSIDE RECORDS SUMMARY | ~2019-12-01 | XMS | Encounter Summary ---
Demographics + + + | Address | [address] | | | [place] [address] | + + + | Home Phone | | + + + | Preferred Language | Unknown | + + + | Marital Status | Single | + + + | Adventism Affiliation | Unknown | + + + | Race | Unknown | + + + | Ethnic Group | Other Race | + + + Author + + + | Author | [facility] | + + + | Organization | [facility] | + + + | Address | Unknown | + + + | Phone | Unavailable | + + + Care Team Providers + +------+ + | Care Assistant Toddler Teacher Name | Role | Phone | [...] [address] | | | | | | [facility] | | | | | | and Healing, | | | | | | Building [address] | | | | | | Floor [place], [place] | | | | | | [address] | | | | | | [phone] | | | +--------+ + + + [...] skin, | | | | | | [id number]. The surgical | | | | | [...] | | | | | | findings.KPW: [id number] | | | | | | My [...] | | | | | lety Signed 12/15/2016 | | | | | | [...] [facility] | [address] | [place] [address] | | | DERMATOPATHOLOGY | [address] | | | + + + + + | [facility] | [address] | [place] [address] | | | DERMATOPATHOLOGY | [address] | | | + + + + + documented in this encounter Visit Diagnoses + + | Diagnosis | + + | Other specified follicular disorders | + + | Other skin changes due to chronic exposure to nonionizing radiation | + + documented in this encounter
--- OUTSIDE RECORDS SUMMARY | ~2019-12-01 | XMS | Encounter Summary ---
Demographics + + + | Address | [address] | | | [place] [address] | + + + | Home Phone | | + + + | Preferred Language | Unknown | + + + | Marital Status | Single | + + + | Sabianist Affiliation | Unknown | + + + | Race | Unknown | + + + | Ethnic Group | Other Race | + + + Author + + + | Author | [facility] | + + + | Organization | [facility] | + + + | Address | Unknown | + + + | Phone | Unavailable | + + + Care Team Providers + +------+ + | Care Ham Facer Name | Role | Phone | + [...]
--- OUTSIDE RECORDS SUMMARY | ~2019-12-01 | XMS | Clinical Summary ---
Demographics + + + | Address | [address] | | | [place] [address] | + + + | Home Phone | | + + + | Preferred Language | Unknown | + + + | Marital Status | Single | + + + | Mandaeism Affiliation | Unknown | + + + | Race | Unknown | + + + | Ethnic Group | Other Race | + + + Author + + + | Author | [facility] | + + + | Organization | [facility]erm[facility] | + + + | Address | Unknown | + + + | Phone | Unavailable | + + + Care Team Providers + +------+ + | Care Nutrition Aide Name | Role | Phone | + +------+ + PCP | Unavailable | + +------+ + Source Comments JOZEF is fully live on both [facility] and [facility] Allergies Not on File Medications Not on [...] + + + Last Filed Vital Signs Not [...] + +--------+ | MEDICARE | MEDICA | [id number] | 08/05/19 | [phone] | [address] | Medica | | | RE A & | | 03-Pre | [address] | [address] | [address] | | | [address] | | sent | | [place] | | | | | | | | [phone] | | + +--------+ +--------+ + +--------+ | COMMERCIAL | INDIVI | [id number] | 04/06/19 | | | Indemn | [...] Person | Self | [birth year] | | [address] | | | al/Fam | | 1936 | [phone] | [place] [address] | | | candy | | | 4 (Home) | | + +--------+ +--------+ + +"
--- OUTSIDE RECORDS SUMMARY | ~2019-12-01 | XMS | Clinical Summary ---
Demographics + + + | Address | [id number] [place] [address] | | | [place] [address] | + + + | Home Phone | | + + + | Preferred Language | Unknown | + + + | Marital Status | | + + + | Jain Affiliation | 1076 | + + + | Race | White | + + + | Ethnic Group | Not or | + + + Author + + + | Author | [facility] | | | and [place] | + + + | Organization | [facility] | | | [...] Team Providers + +------+ + | Care Loan Secretary Name | Role | Phone | + [...] +--------+ +---------+--------+ | MEDICARE | MEDICA | [id number] | 07/06/19 | [phone] | | Medica | | | RE | | 15-Pre | 5 | | re | | | PART A | | sent | | | | | | AND B | | | | | | + +--------+ +--------+ +---------+--------+ | CIGNA | CIGNA | [id number] | 01/26/ | [phone] | | Indemn [...] Person | Self | [birth year] | | [address] | | | al/Fam | | 1936 | [phone] | [place] [address] | | | candy | | | 4 (Home) | | + +--------+ +--------+ + + Advance Directives + + + + + | Type | Date Recorded | Patient | Explanation | | | | Monorail Car Operator | | + + + + + | Power of | | | | | Data Technical Lead | | | | + + + + + | Advance | | | | | Directive | | | | + + + + +
--- OUTSIDE RECORDS SUMMARY | ~2019-12-01 | XMS | Encounter Summary ---
Demographics + + + | Address | [id number] [place] [address] ROAD | | | [place] [address] | + + + | Home Phone | | + + + | Preferred Language | Unknown | + + + | Marital Status | | + + + | Christian Affiliation | 1076 | + + + | Race | White | + + + | Ethnic Group | Not or | + + + Author + + + | Author | [facility] | | | and [place] | + + + | Organization | [facility] | | | [...] Team Providers + +------+ + | Care Scrap Hoist Operator Name | Role | Phone | [...] TYREE [place] | | | | | [address] | [place] [address] | | | | | [phone] | [phone] | | | | | | | [...]
--- OUTSIDE RECORDS SUMMARY | ~2019-12-01 | XMS | Clinical Summary ---
Demographics + + + | Address | [address] | | | [place] [address] | + + + | Home Phone | | + + + | Preferred Language | Unknown | + + + | Marital Status | Single | + + + | Sikhism Affiliation | Unknown | + + + | Race | Unknown | + + + | Ethnic Group | Other Race | + + + Author + + + | Author | JOZEF Terry [facility] | + + + | Organization | [facility] | + + + | Address | Unknown | + + + | Phone | Unavailable | + + + Care Team Providers + +------+ + | Care Nurse Discharge Planner Name | Role | Phone | + +------+ + PCP | Unavailable | + +------+ + Source Comments JOZEF is fully live on both [facility] Ambulatory and [facility] InPatient.[facility] Allergies [...] + +--------+ | MEDICARE | MEDICA | [id number] | 08/05/19 | [phone] | [address] | [address] | | | RE A & | | 03-Pre | 1 | [phone] | [address] | | | B | | sent | | [place] | | | | | | | | [phone] | | + +--------+ +--------+ + +--------+ | COMMERCIAL | INDIVI | [id number] | 04/06/19 | | | Indemn | [...] Person | Self | [birth year] | [address] | | | al/Fam | | 1936 | [phone] | [place] [address] | | | candy | | | 4 (Home) | | + +--------+ +--------+ + +"
--- OUTSIDE RECORDS SUMMARY | ~2019-12-01 | XMS | Encounter Summary ---
Demographics + + + | Address | [address] | | | [place] [address] | + + + | Home Phone [...] Author + + + | Author | [facility] | + + + | Organization | [facility] | + + + | Address | Unknown | + + + | Phone | Unavailable | + + + Care Team Providers + +------+ + | Care Residential Advisor Name | Role | Phone | [...]
--- OUTSIDE RECORDS SUMMARY | ~2019-12-01 | XMS | Encounter Summary ---
Demographics + + + | Address | [address] | | | [place] [address] | + + + | Home Phone [...] + + + | Author | [facility] | + + + | Organization | [facility] | + + + | Address | Unknown | + + + | Phone | Unavailable | + + + Care Team Providers + +------+ + | Care Coagulator Name | Role | Phone | + [...] | | | | | | Floor [place], [place] | | | | | | [address] | | | | | | [phone] | | | +--------+ + + + [...] skin, | | | | | | [id number]. The surgical | | | | | [...] Mailcode [id number] | [place] [address] | | | DERMATOPATHOLOGY | [address] | | | + + + + + | [facility] | Mailcode [id number] | [place] [address] | | | DERMATOPATHOLOGY | [address] | | | + + + + + documented in this encounter Visit Diagnoses + + | Diagnosis | + + | Other specified follicular disorders | + + | Other skin changes due to chronic exposure to nonionizing radiation | + + documented in this encounter
[~2019-12-01 09:49] MED LIST changes: +ACETAMINOPHEN-1 EAC1 PO; +DOXYCYCLINE HY100 MG PO
--- NOTE | 2019-12-01 12:37 | NUR ---
84 year old, female transported from ED room 4 to room 126 in CCU by this nurse on room air and telemetry, BP cuff, pulse ox in place. O2 sats remain 89-92% while on room air for transportation. Placed immediately on 3L/min per NC upon arrival to room. O2 sats 92-93% on oxygen. Assessment completed. Patient alert and oriented. Ambulates from cart to bed in room with standby assist. Call light in reach, oriented to room and calling for assist.
--- NOTE | 2019-12-01 14:47 | NUR ---
IV alarming, bolus not yet completed. IV pump restarted. Was alarming distal occlusion due to patient bending arm. Instructed to call if IV pump begins beeping again. Informed of need for IVF to infuse and importance of her notifying staff with call button to ensure she will get these fluids. Verbalizes understanding. Informed this nurse may start IV in more convenient place so she does not need to remember to keep arm straight. Does not want another IV site at this time stating "I will be really careful."
[2019-12-01] MEDS ORDERED: SULFAMETHOXAZO1 EAC1 PO (15:21)
[2019-12-01] MEDS ORDERED: ACYCLOVIR400 MG PO (15:22)
[2019-12-01] MEDS ORDERED: HYDROXYCHLOROQ200 MG PO (15:35)
[2019-12-01] MEDS ORDERED: ACETAMINOPHEN-1 EAC1 PO (15:43)
--- NOTE | 2019-12-01 15:54 | NUR ---
Patient resting with eyes closed at this time. IV pump alarming, infusion complete. D5LR initiated per orders. Patient assisted with standby assist to bathroom. Continent of urine, 100 mL urine in hat, urine also noted in toilet. Returns to bed.
--- NOTE | 2019-12-01 16:15 | NUR ---
Patient resting with eyes closed at this time. Call light in reach. O2 sats 89%. Placed on oxymask at 4L/min. O2 sats increase to 93%. Resp unlabored. Denies Shortness of breath at this time. States she is just tired and wants to sleep. Denies other needs at this time.
--- NOTE | 2019-12-01 16:28 | NUR ---
O2 sats currently 88-89% on 4L/min per oxymask. Figueroa, RT, notified. States he will be to unit to assess patient shortly. oxygen increased to 5L/min per oxymask by JAIRO Braden.
--- NOTE | 2019-12-01 16:55 | NUR ---
Dr. Smith notified of decreasing O2 sats and patient requiring increasing amounts of oxygen. Telephone Orders Dr. Smith/Salbador Jacques, RN, for hiflow oxygen or CPAP. Shellie Gipson, RT, notified.
--- NOTE | 2019-12-01 17:24 | NUR ---
Shellie Gipson, RT, in patient room placing her on Vapotherm at this time.
--- NOTE | 2019-12-01 18:00 | NUR ---
Dr. Smith notified of patient being on vapotherm at this time. Dr. Smith/ Salbador Jacques, RN, telephone orders for proning to be initiated.
--- NOTE | 2019-12-01 18:41 | NUR ---
Patient up to bedside commode, continent of urine. Lays in prone position in bed. Informed patient to attempt to stay in position for a minimum of 30 minutes, but up to 2 hours. Instructed to call to reposition. Denizes understanding.
--- NOTE | 2019-12-01 20:15 | NUR ---
PATIENT APPEARED TO BE SLEEPING SOUNDLY. LAYING MOSTLY PRONE, TURNED SLIGHTLY TO HER RIGHT SIDE. O2 SAT 95% ON VAPOTHERM 30L AND 50% Fi02. RR 14. PATIENT WOKE EASILY TO VOICE. DENIES FEELING SOB, PAINFUL OR NAUSEA. SECOND IV SITE ESTABLISHED DUE TO DISTAL OCCULSIONS ON RIGHT AC SITE WHILE PATIENT ATTEMPTING TO PRONE. PATIENT TOLERATED WELL. DENIED NEED TO VOID. ORAL TEMP WNL. ALLOWING PATIENT TO REST. CALL LIGHT IN REACH.
--- NOTE | 2019-12-01 22:50 | NUR ---
PT CALLED TO REQUEST PAIN MEDICATION, STATES SHE NORMALLY TAKES TYLENOL WITH CODEINE. ASKED IF REGULAR TYLENOL WOULD WORK AND SHE STATED NO. DR. MARR CALLED AND HE PLACED PRN ORDERS. 1 TAB GIVEN AT THIS TIME FOR 4/10 GENERALIZED AND FEET PAIN. PT UP TO [facility], VOIDED 200ML, PROVIDED HER OWN SHAYLEE-CARE AND RETURNED TO BED. FRESH ICE WATER PROVIDED. PT DENIES FURTHER REQUESTS, CALL LIGHT AND BELONGINGS WITHIN REACH.
--- NOTE | 2019-12-01 23:30 | NUR ---
PATIENT TOLERATING VAPOTHERM 30L 50% Fi02 AT 98% WITH RR 14-18. TITRATED TO 25L 45% Fi02. PATIENT ABLE TO MAINTAIN O2 SATS GREATER THAN 90% FOR SEVERAL MINS. ALLOWED PATIENT TO REST.
--- NOTE | 2019-12-02 00:30 | NUR ---
PATIENT TITRATED BACK TO 30L AND 50% Fi02. O2 SATS 84%, INCREASED QUICKLY TO 95%. PATIENT APPEARS TO BE SLEEPING SOUNDLY. ALLOWED TO REST. IV FLUIDS PER ORDER, SITE WNL. CALL LIGHT IN REACH.
--- NOTE | 2019-12-02 04:00 | NUR ---
PATIENT CONTINUES TO APPEAR TO BE RESTING WELL. TOLERATING VAPOTHERM AT 30L 50% Fi02. ALLOWED PATIENT TO REST.
--- NOTE | 2019-12-02 05:30 | NUR ---
PATIENT WOKE EASILY TO VOICE. REPORTS FEELING WELL THIS MORNING. NO SOB OR PAIN. NO NAUSEA. TOLERATING VAPOTHERM AT 30L 50% Fi02. RR 16-18. PATIENT UP TO BS TO VOID. REPORTS SOME DISCOMOFRT WITH VOIDING BUT IMPROVED. TOLERATED ACTIVITY WELL. PATIENT FEELS CLAMMY AND COOL. NEW PATIENT GOWN AND LINEN PROVIDED. PATIENT AFEBRILE. WARM BLANKET PROVIDED. MORNING LABS DRAWN. PATIENT DENIED FURTHER NEEDS. CALL LIGHT IN REACH.
--- NOTE | 2019-12-02 08:17 | NUR ---
Patient with head of bed elevated, awake, alert and oriented. Denies pain at this time. States she is feeling much better at this time. Orders breakfast. IV converted to SL per Dr. Smith orders. Patient denies needs at this time. Call light in reach. Bed rails up X2.
--- NOTE | 2019-12-02 08:18 | NUR ---
Upon patient's assessment, IV to Right AC noted to be out and hanging from patient arm with tape. IV catheter intact, no bleeding from site noted. Patient was unaware IV had fallen out.
--- NOTE | 2019-12-02 09:19 | NUR ---
Remains alert and oriented at this time. Medications administered as prescribed, takes without difficulty. Call light in reach, bed rails up X2.
--- NOTE | 2019-12-02 10:35 | NUR ---
Patient assisted to BSC. Continent of urine at this time. Returns to bed to prone position. Tolerating with O2 sats 98-99%. Patient denies other needs at this time. Finished breakfast. Call light in reach. Bed rails up X2.
--- NOTE | 2019-12-02 11:58 | NUR ---
Patient remains in proning position at this time. Call light in reach. Patient reviewing menu to order lunch at this time. Denies other needs at this time. Sats remain mid to high 90's on highflow oxygen.
--- NOTE | 2019-12-02 12:32 | NUR ---
PT ON PRECAUTIONS, UNABLE TO VISIT. WILL FOLLOW ABLE
--- NOTE | 2019-12-02 13:20 | NUR ---
Sitting up in bed, eating lunch. Requests chapstick for lips. Denies other needs at this time.
--- NOTE | 2019-12-02 13:55 | NUR ---
pt awake and alert x4, able to finish approximatly 50% of her lunch. pt denies any needs at this time. pt given lip balm per her request. call light and phone are within reach.
--- NOTE | 2019-12-02 15:59 | NUR ---
PATIENT WAS ASLEEP TWICE TODAY WHEN I CHECK IN. DID NOT WANT TO CALL AND WAKE HER. SPOKE WITH STAFF NURSES. THEY STATE SHE LIVES WITH SPOUSE AND HAS ADULT KIDS CLOSE BY WHO ARE AVAIALABLE TO HELP. SHE USES NO DME AND IS INDEPENDENT AMBULATORY IN ROOM. THEY STATE SHE HAS INDICATED SHE WILL RETURN HOME AT DISCHARGE. SHE HAS PCP TO FOLLOW UP WITH. NO KNOWN BARRIERS AT THIS TIME. CM WILL CONTINUE TO FOLLOW.
--- NOTE | 2019-12-02 17:05 | NUR ---
Assessment completed. VS obtained. Patient up to bedside commode, continent of urine and stool. Unable to measure, large amount of both noted. Requests to sit up in chair. Denies pain and discomfort at this time. Call light in reach, bed rails up X2.
--- NOTE | 2019-12-02 20:15 | NUR ---
PATIENT ON PHONE WITH FAMILY. ROOM CLEANED UP AND FRESH WATER PROVIDED. PATIENT WILL CALL WHEN SHE IS DONE WITH HER PHONE CALL.
--- NOTE | 2019-12-02 21:00 | NUR ---
PATIENT REQUEST TYLENOL WITH CODEINE FOR GENERALIZED PAIN. TOLERATING VAPOTHERM WELL. 30L 50% Fi02. RR 16. VS STABLE. NO FEVER. PATIENT DENIES NEED TO VOID. CONTINUES TO SIT IN RECLINER WATCHING TV. WILL CALL WHEN READY FOR BED.
--- NOTE | 2019-12-02 22:30 | NUR ---
PATIENT ASSISTED TO BSC BY SHELLY GILL AND THEN INTO BED.
--- NOTE | 2019-12-03 00:45 | NUR ---
PATIENT APPEARED TO BE SLEEPING WHEN RN ENTERED ROOM. BREATHING EVEN AND NONLABORED, TOLERATING VAPOTHERM AT 30L 50% Fi02 WITH O2 SATS IN HIGH 90'S. TITRATED TO 30L 45% Fi02. ALLOWED PATIENT TO REST. CALL LIGHT IN REACH.
--- NOTE | 2019-12-03 05:30 | NUR ---
MORNING LABS DRAWN. PATIENT REPORTS FEELING WELL. NO SOB OR NAUSEA. APPETITE INCREASED AND PATIENT LOOKING FORWARD TO BREAKFAST. TOLERATING VAPOTHERM 30L 45% Fi02. PATIENT REPORTS THAT SHE HAD DIFFICULTY SLEEPING THROUGHOUT THE NIGHT, JUST THAT HER MIND WOULD WONDER. PATIENT VS STABLE. NO OTHER NEEDS AT THIS TIME.
--- NOTE | 2019-12-03 07:30 | NUR ---
REPORT RECIEVED. JOEY IN ROON ASSISTING PATIENT WITH ORDERING BREAKFAST AND VITAL SIGNS.
--- NOTE | 2019-12-03 08:02 | NUR ---
VITALS SIGNS DOCUMENTED AND I&O'S. PATIENT EATING BREAKFAST. LINENS CHANGED. NO FURTHER NEEDS AT THIS TIME.
--- NOTE | 2019-12-03 09:00 | NUR ---
TOOK BREAKFAST POOR. STATES SHE HAS NOT HAD AN APPETITE. IS IN CHAIR ASSESSMENT DONE. DENIES PAIN. TALKED WITH PATIENT ABOUT POC FOR DAY. IS UNDERSTANDING. UP TO COMMODE TO EXPELL URINE WITH VERY SMALL STOOL. DENIES FEELING SHORT OF BREATH. REMAINS ON VAPOTHERM 30 LITERS, 45% FIO2.
--- NOTE | 2019-12-03 11:00 | NUR ---
back to bed with assist from TRACK LEADER. CHRISTY SHORTNESS OF BREATH WITH EXERTION.
--- NOTE | 2019-12-03 12:10 | NUR ---
IN BED, SITTING UP IN BED FOR LUNCH. MODIFIED ASESSMENT DONE SEKOU ZAMUDIO USED. DENEIS PAIN. NO CHANGES IN VAPOTHERM SETTINGS.
--- NOTE | 2019-12-03 14:00 | NUR ---
PRONE FOR APPROX 20 MIN.
--- NOTE | 2019-12-03 18:10 | NUR ---
DR. CARR UPDATED ON PATIENT RIGHT SIDE CHEST DISCOMFORT AND DESAT WITH ACTIVITY. NO FUTHER OREDERS AT THIS TIME. PATIENT IS SITTING UP IN CHAIR FOR DINNER.
--- NOTE | 2019-12-03 19:33 | NUR ---
REPORT TO NEXT SHIFT. CONTINUE TO SIT IN CHAIR. VAPOTHERM AT 35 L 45%. IS W/O C/O.
--- NOTE | 2019-12-03 21:00 | NUR ---
PATIENT SITTING UP IN RECLINER. TOLERATING VAPOTHERM 30L 45% Fi02. PRN MEDS PROVIDED PER REQUEST. PATIENT REPORTS ONGOING RIGHT SIDED PAIN WITH COUGHING OR DEEP BREATHING. ASSISTED PATIENT UP TO BSC. PATIENT ASSISTED WITH EVENING CARES AND INTO BED. ENCOURAGED TO LAY ON HER SIDE OR PRONE. PATIENT AGREEABLE. VS STABLE. CALL LIGHT IN REACH.
--- NOTE | 2019-12-04 00:45 | NUR ---
PATIENT APPEARS TO BE SLEEPING SOUNDLY. TOLERATING VAPOTHERM AT 30L 45% Fi02. RR 15-18. PATIENT'S HR IN LOW 40'S. ALLOWED PATIENT TO REST. CALL LIGHT IN REACH.
--- NOTE | 2019-12-04 05:30 | NUR ---
PATIENT ASSISTED UP TO BSC. PATIENT VOIDED 600 MLS. REPORTS SLEEPING MUCH BETTER AND WAS ABLE TO STRETCH WITH MINIMAL PAIN IN HER RIGHT SIDE. PATIENT TOLERATED ACTIVITY WITH VAPOTHERM 30L 45% Fi02. DENIES ANY NEEDS AT THIS TIME. PATIENT SITTING AT EDGE OF BED. VS STABLE. CALL LIGHT IN REACH.
--- NOTE | 2019-12-04 07:30 | NUR ---
REPORT RECIEVED. PATIENT IS IN CHAIR.
--- NOTE | 2019-12-04 08:30 | NUR ---
UPON ENTERING ROOM, PATIENT IS IN BED. DENIES SHORTNESS OF BREATH. STATES SHE SLEPT VERY WELL. MODIFIED ASSESSMENT DONE.
--- NOTE | 2019-12-04 09:00 | NUR ---
TOOK BREAKFAST WELL. DENIES NAUSEA. REMDESIVER HUNG. ROUTINE [id number] GIVEN. TALKED WITH PATIENT ABOUT POC FOR DAY, IS UNDERSTANDING.
--- NOTE | 2019-12-04 09:13 | NUR ---
O2 SOURCE TO NC AT 6 L. WILL TRIAL THIS PATIENT WISHES TO TAKE SHOWER TODAY.
--- NOTE | 2019-12-04 09:16 | NUR ---
RESTING ON O2 AT 6 LITER NC. O2 SAT 96. RR-10. PATIENT STATES THIS O2 SOURCE FEELS MUCH BETTER.
--- NOTE | 2019-12-04 10:04 | NUR ---
O2 SATS REMAINS IN HIGH 90'S. RR-14. NO RESP DISTRESS NOTED. RT IS AWARE OF POC REGARDING O2 SOURCE AND ADLS.
--- NOTE | 2019-12-04 11:45 | NUR ---
UP IN ROOM AN 4 L NC. NO DESATURATION NOTED. PATIENT STATES SHE FEELS VERY GOOD.
--- NOTE | 2019-12-04 12:00 | NUR ---
ASSISTED PATIENT WITH SHOWER. TOLERATED WELL. O2 SAT 90 ON 4 LITERS DURING SHOWER. IS ON TELE #8. REFUSING LUNCH. BED LINENS CHANGED, THEN BACK TO BED W/O INCIDENT.
--- NOTE | 2019-12-04 13:10 | NUR ---
NAPPING. NO DISTRESS NOTED.
--- NOTE | 2019-12-04 14:40 | NUR ---
SITTING UP AT BEDSIDE TO EAT SALAD. REMAINS ON 4 L NC. O2 SATS 94-97.
--- NOTE | 2019-12-04 18:45 | NUR ---
sitting up in chair for dinner. O2 DECREASED TO 2 L NC. STATES SHE HAS MILD RIGHT SIDE CHEST PAIN RATES 3/10 WITH DEEP BREATH. DENEIS FUTHER PROBLEMS.
--- NOTE | 2019-12-04 19:08 | NUR ---
no futher changes. REPORT TO NEXT SHIFT. IS ON TELE #8. O2 SAT 94 ON 2 L NC.
--- NOTE | 2019-12-04 20:30 | NUR ---
PATIENT REQUEST PRN TYLENOL WITH CODEINE. PATIENT REPORTS PAIN IN RIGHT SIDE. VS STABLE. TOLERATING 2L NC. PATIENT IN BED. ASSISTED WITH EVENING CARES. CALL LIGHT IN REACH.
--- NOTE | 2019-12-04 22:00 | NUR ---
PATIENT APPEARS TO BE SLEEPING SOUNDLY. O2 SAT > 90% ON 2L NC.
--- NOTE | 2019-12-05 | NUR ---
PATIENT APPEARS TO BE SLEEPING SOUNDLY. O2 SAT >90% ON 2L NC. ALLOWED PATIENT TO REST.
--- NOTE | 2019-12-05 04:30 | NUR ---
TELE BATTERY CHANGED. PATIENT REPORTS FEELING WELL THIS MORNING. DENIED ANY PAIN OR TROUBLE SLEEPING. ASSISTED UP TO THE BATHROOM, PATIENT STEADY ON HER FEET. PATIENT RETURNED TO BED. MORNING LABS DRAWN. VS STABLE. CALL LIGHT IN REACH. NO DESAT NOTED WITH ACTIVITY. CONTINUES ON 2L NC.
--- NOTE | 2019-12-05 07:15 | NUR ---
Report received, orders acknowledged.
--- NOTE | 2019-12-05 08:30 | NUR ---
Patient laying in bed, respirations even and unlabored. 2LNC in place with an SpO2 in the low 90's. Breakfast delivered, patient sitting up in bed for meal. Vital signs taken, assessment complete. AM medications given. IV remdesivir infusing at 500 mls/hr. Patient denies pain or SOB. Water refreshed, warm blankets provided. Patient denies any needs at this time. Call light within reach.
--- NOTE | 2019-12-05 10:40 | NUR ---
Dr. Jimenes in room to assess patient and discuss POC
--- NOTE | 2019-12-05 11:52 | NUR ---
RT in room to assess patient
--- NOTE | 2019-12-05 12:17 | NUR ---
SPOKE WITH PATIENT FROM [facility]. PATIENT HAS QUALIFIED TO GO HOME ON OXYGEN. DISCUSSED SEVERAL OPTIONS, SHE STATES TO USE [facility]HOME [facility]. CONFIRMED HOME ADDRESS.
--- NOTE | 2019-12-05 13:16 | NUR ---
Patient sitting up in chair watching tv. SpO2 ranging from 92-95% on RA. Denies needs, call light within reach.
--- NOTE | 2019-12-05 13:18 | NUR ---
Patient sleeping in chair, respirations even and unlabored. 2LNC in place, SpO2 of 96%. Call light within reach.
--- NOTE | 2019-12-05 13:33 | NUR ---
PT IS ON PRECAUTIONS-UNABLE TO VISIT. WILL BE AVAILABLE NEEDED
[2019-12-05] MEDS ORDERED: DEXAMETHASONE4 MG PO (13:56)
--- NOTE | 2019-12-05 14:45 | NUR ---
Patient sitting up in chair. Discharge instructions given. All patient questions and concerns answered. Patient educated on necessity to self-quarantine until next Thursday, at the minimum. Patient verbalized understanding of follow-up appt with PCP. Vital signs taken. All patient belongings collected. Patient remains on 2LNC with an SpO2 in the upper 90's. Patient denies further needs at this time, will contact Son for ride home.
--- NOTE | 2019-12-05 15:03 | NUR ---
RX, QUALIFIER, CLINICALS FAXED TO [facility] FOR OXYGEN. FAX CONFIRMATION RECEIVED AT 159PM. CALLED AND SPOKE WITH CUATE AT [facility] AT 1500. THEY HAVE RECEIVED AND ARE WORKING ON AUTHORIZATION. THEY WILL CALL WHEN PATIENT CAN BE DISCHARGED. ASKED THAT THEY CALL NURSES [facility] [phone] WHEN TIME TO DISCHARGE. PORTABLE TANK TAKEN TO ICU FOR DISCHARGE TO USE FOR TRANSPORTATION HOME.
--- NOTE | 2019-12-05 15:45 | NUR ---
Patient leaves unit via wheelchair with nursing staff. 2LNC in place with portable oxygen. Belongings in hand.
== END 2019-12-05 15:50 | disposition home or self-care (01) | DRG 177 ==
LOC: ED 09:49 → CCU 11:28
PROVIDERS: ADMIT Internal Medicine
DX: U07.1 COVID-19 (principal); J12.89 Other viral pneumonia; J96.01 Acute respiratory failure with hypoxia; C91.10 Chronic lymphocytic leukemia of B-cell type not having achieved remission; E86.0 Dehydration; E87.5 Hyperkalemia
CPT/HCPCS: 71045; 80053; 81001; 82803; 83735; 85025; 94667; 94799; 96374; 96375; 99285-25; J1100; J1650; J2405; J7050; J7121; J8540

== ENCOUNTER 2021-02-04 05:50 | Day surgery (SDC) | payer MEDICARE, OTHER ==
--- NOTE | 2021-01-22 11:12 | NUR ---
DOS: 02-04-21 STAIRS: NONE HAS RAMP WALKER: HAS WALKER AND INSTRUCTED TO BRING IN WITH HER ON THE DAY OF SURGERY. EXPLAINED THAT IT IS NEED TO BE ADJUSTED CORRECTLY AND TO PRACTICE AMBULATION. TOILETS: HAS TALL ONES SHOWER: WALK IN APPOINTMENT AND PHYSICAL THERPY: HER WILL BRING HER TILL SHE IS ABLE TO DRIVE. ALSO PROVIDED [facility] SHE NEEDED SOMETHING.
[~2021-02-04] VITALS: Ht 167.6 cm; Wt 77.3 kg
[~2021-02-04 05:50] MED LIST changes: +ACYCLOVIR400 MG PO; +ALLOPURINOL300 MG PO; +DEXAMETHASONE4 MG PO; +DIALYVITE 800-1 EAC2 PO; +HYDROXYCHLOROQ200 MG PO; +IMBRUVICA420 MG PO; +SULFAMETHOXAZO1 EAC1 PO
[2021-02-04] MEDS ORDERED: XARELTO10 MG PO (09:15)
[2021-02-04] MEDS ORDERED: CELECOXIB200 MG PO (09:15)
[2021-02-04] MEDS ORDERED: OXYCODONE HCL5 MG PO (09:16)
[2021-02-04] MEDS ORDERED: SENNA LAX8.6 MG PO (09:16)
[2021-02-04] MEDS ORDERED: ACETAMINOPHEN500 MG PO (09:16)
--- NOTE | 2021-02-04 09:28 | NUR ---
02/04/21 0928 Catherine,Mary 0988 PT ARRIVED TO PACU ON 6L VIA MASK, PT WAKES EASILY TO TACTILE STIMULI AND IS ENCOURAGED TO DEEP BREATHE. VSS. PT DENIES PAIN AND NAUSEA. SPINAL LEVEL T-11 AND PT UNABLE TO MOVE HER TOES AND SPINAL EDUCATION GIVEN. SURGICAL SITE WNL AND PT EASILY FALLS BACK TO SLEEP. RESP EVEN AND UNLABORED.
--- NOTE | 2021-02-04 10:00 | NUR ---
PT ALERT, ORIENTED AND SUPPORTED BY HER ZAKIA. PT SEEMS IN GOOD SPIRITS-SHE JUST LOST A FAMILY MEMBER YESTERDAY. BOTH ACKNOWLEDGED LOSS AND EXPRESS SADDNESS, BUT SEEM PREPARED FOR TODAY. ZAKIA WILL REMAIN ON SITE, HAD PRAYER AND WILL FOLLOW
--- NOTE | 2021-02-04 10:53 | NUR ---
1030: PT ARRIVES TO UNIT VIA STRETCHER FROM PACU. AWAKE AND ALERT ON ARRIVAL. IMAGING AT THE BEDSIDE FOR XRAY. VSS, RESP EVEN AND UNALABORED. O2 SAT STABEL ON 2L VIA NC. DENIES PAIN AND NAUSEA AT THIS TIME. DRESSING C/D/I, CMS WNL. CRYO CUFF, [place] HOSE AND SCDS IN PLACE. ICE WATER, COFFEE AND CRACKERS PROVIDED. POC DISCUSSED AND PT AGREEABLE. SPINAL ALMOST RESOLVED. NO NEEDS VOICED, CALL LIGHT WITHIN REACH. ATTENTIVE AT THE BEDSIDE.
--- NOTE | 2021-02-04 11:38 | NUR ---
1130: PT AWAKE AND ALERT WATCHING TV. BARBARA PO INTAKE WELL AND REQUESTS LUNCH. ORDER PLACED. VSS, RESP EVEN AND UNLABORED. OXYGEN TURNED OFF AND PT TRIALLED ON RA. SATS REMAIN STABLE >95%. NC REMOVED. DRESSING REMAINS C/D/I, CMS WNL. SPINAL RESOLVED. CONTS TO DENY PAIN. PRESCRIPTION PROVIDED TO AND TO GO TP PHARMACY PRIOR TO DC. DENIES NEEDS, CALL LIGHT WITHIN REACH 1135: PHYSICAL THERAPIST ARRIVES AT THE BEDSIDE TO WORK WITH PT
--- NOTE | 2021-02-04 12:07 | OR ---
[facility] [address] [place], [place] [address] Signed DATE OF OPERATION: 02/04/2021 SURGEON: Sam Rees MD PREOPERATIVE DIAGNOSIS: Degenerative joint disease, left hip. POSTOPERATIVE DIAGNOSIS: Degenerative joint disease, left hip. PROCEDURE PERFORMED: Left total hip arthroplasty with Ken. TOP POLISHER: Sameera Hanson PA-C. Sameera was present and critical for all portions of procedure. ANESTHESIA: Spinal. BLOOD LOSS: 175 mL. IMPLANTS: Ariane Accolade II stem, size 5 high offset, 52 mm cup and -2.5 head. BRIEF HISTORY: Naina is an 85-year-old female, who has had worsening arthritis in her hip. Risks and benefits of operative treatment were discussed with her and she elected to proceed. DESCRIPTION OF PROCEDURE: Once consent was obtained, she was taken to the operating room. After adequate anesthesia, she was placed in the right lateral decubitus position. All downside pressure points were well padded. An axillary roll was placed. The hip was then prepped and draped in a standard sterile fashion. This was taken up to the bottom of the ribcage. Once this was accomplished, the navigation array was placed in the iliac crest 3 fingers posterior to the ASIS. This was done through 3 separate stab incisions. The standard anterior lateral approach was then taken through the skin and subcutaneous tissue. The IT band was divided longitudinally. The vastus lateralis was split from the anterior portion of the greater trochanter distally, elevating subperiosteally. We Electronically Signed By: SAM REES MD 02/04/21 1207 PATIENT NAME: NAINA FRASER OPERATIVE REPORT DATE OF : 39 REPORT #: [id number] PHYSICIAN: SAM REES MD PCP: MARISSA WADSWORTH PAC REPORT IS CONFIDENTIAL AND NOT TO BE RELEASED WITHOUT AUTHORIZATION [facility] [address] [place], [place] [address] Signed then split the anterior 3 mm of the gluteus medius and bluntly dissected it proximally. We then carried our dissection down to the anterior aspect of the capsule. Capsulotomy was performed and 2 retractors were placed around the femoral neck. The hip was then rotated and the dissection was taken underneath the vastus lateralis and anterior capsule around the level of the lesser trochanter. The capsule was then elevated off the acetabulum. The checkpoint was placed in the greater trochanter and the position of the leg was verified using the computer. Hip was then dislocated and the femoral neck cut was made 24 mm inferior to the osteophyte on the femoral head. The bone was removed and passed off the table. Periacetabular soft tissues were removed and the pulvinar was removed. Once this was accomplished, the acetabulum fine anatomic points were registered with the computer. Robot was then brought in and the acetabulum was reamed up to a 52 according to pre-plan. The cup was then positioned in the acetabulum and the cup was impacted in 40 degrees of abduction and 20 degrees of anteversion. Once this was completed, the commercial drone pilot was removed. The cup was pulled with the Suzette and was found to be quite stable. The liner was then impacted into position. Attention was then turned to the proximal femur. Proximal femur was opened using anmol cutter followed by the Piotr awl. It was then sequentially reamed and broached up to 5. Initially, we tried a 6, however, it would not seat far enough distal. We then put the 5 back and seated it well with a -2.5 head. The hip was reduced. Leg lengths were found to be 3 mm longer than preop, which was our plan. The hip was quite stable with no shuck. The hip was then dislocated and the trials were removed. The broach was left in place and calcar reamer was used to clean up the calcar. Once this was accomplished, the broach was removed and the final stem was impacted until it was well seated and quite stable. A -2.5 head was placed on it and the hip was reduced. Again, leg lengths were found to be good and the hip was stable through range of motion of 110 degrees of flexion, 30 of internal and external rotation. No impingement was noted. The wound was copiously irrigated with normal saline throughout the procedure. A total of 3 L were used. In the midst of this, we did do an Aricept soak. The periarticular soft tissues were injected with 100 mL ropivacaine and Toradol mixture. The capsule was then closed using #2 Vicryl. The vastus and IT bands were closed independently using #2 Stratafix, subcutaneous tissue with #0 Stratafix, and the skin with 3-0 Stratafix. Steri-Strips were applied. The wound was dressed with Acticoat 7 dressing. She was awakened and taken to the recovery room in satisfactory condition. All sponge, needle, and instrument counts were correct. Sam Rees MD BA/JASMIN Electronically Signed By: SAM REES MD 02/04/21 1207 PATIENT NAME: NAINA FRASER OPERATIVE REPORT DATE OF : 39 REPORT #: [id number] PHYSICIAN: SAM REES MD PCP: MARISSA WADSWORTH PAC REPORT IS CONFIDENTIAL AND NOT TO BE RELEASED WITHOUT AUTHORIZATION [facility] [address] [place], [place] [address] Signed /[id number] Copies: ~ Electronically Signed By: SAM REES MD 02/04/21 1207 PATIENT NAME: NAINA FRASER OPERATIVE REPORT DATE OF : 39 REPORT #: [id number] PHYSICIAN: SAM REES MD PCP: MARISSA WADSWORTH PAC REPORT IS CONFIDENTIAL AND NOT TO BE RELEASED WITHOUT AUTHORIZATION
--- NOTE | 2021-02-04 12:35 | NUR ---
1230: PT RETURNS TO ROOM 4 FROM PHYSICAL THERAPY SESSION. SAFE PER THERAPSIT FOR DC. PT REPORTS MILD NAUSEA THAT IS RESOLVING NOW THAT SHE IS BACK IN BED. VSS, RESP EVEN AND UNLABORED. DRESSING REMAINS C/D/I AFTER ACTIVITY, CMS WNL. CRYO CUFF, COMPRESSION SOCKS AND SCDS IN PLACE. REG LUNCH ARRIVES AT THE BEDSIDE. CALL LIGHT WITHIN REACH 1240: ORDER RECEIVED FROM ZARA HOOD FOR 4MG ZOFRAN IV ONCE
--- NOTE | 2021-02-04 12:43 | NUR ---
1245: ANTIEMETIC RX DISCUSSED WITH PT AND PT REPORTS NAUSEA RESOLVED AT THIS TIME. DECLINES RX
--- NOTE | 2021-02-04 14:00 | NUR ---
1330: PT WAKES WHEN THIS RN ENTERS THE ROOM. VSS, RESP EVEN AND UNLABORED. CONTS TO DENY PAIN AND NAUSEA. NO CHANGE TO DRESSING FROM ARRIVAL, CMS WNL. SCDS, [place] HOSE AND CRYO CUFF IN PLACE. ENCD PT TO ATTEMPT TO VOID. DANGLES AT THE BEDSIDE. BARBARA WELL, DENIES DIZZINESS AND SOB. AMBULATES WITH WALKER ASSIST TO BR, STEADY GAIT. SUCESSFUL POST OP VOID, 450ML. BACK TO ROOM 4. DRESSES SELF INDEPENDENTLY. BACK INTO STRETCHER AND AWAITS HUSBANDS ARRIVAL. NO NEEDS. CALL LIGHT WIHIN REACH
--- NOTE | 2021-02-04 14:11 | NUR ---
1410: TC PLACED TO MD JESSIKA AND REPORT PROVIDED. SAFE TO DC HOME AFTER SECOND DOSE OF ANCEF WHEN ARRIVES TO THE UNIT
--- NOTE | 2021-02-04 15:33 | NUR ---
1500: PT AWAKE AND ALERT TALKING ON PHONE. VSS, RESP EVEN AND UNLABORED. DENIES PAIN AND NAUSEA. SECOND DOSE OF ANCEF ADMINISTERED ORDERED. SL REMOVED WITH CATH TIP INTACT AND PRESSURE APPLIED TO SITE, WNL. DRESSING REMAINS C/D/I, [facility] WNL. 1520: ARRIVES AT THE HOSPITAL. DC INSTRUCTIONS PROVIDED AND DISCUSSED ORDERED. PT VOICES UNDERSTANDING AND DENIES QUESTIONS AND CONCERNS AT THIS TIME. WHEELED OFF OF UNIT BY THIS RN. TRANSFERS INTO VEHICLE INDPENDENTLY AND APPROPRIATELY. NO PHYSICAL S/S OF DISTRESS AT THIS TIME
== END 2021-02-04 15:20 | disposition home or self-care (01) ==
LOC: DS 05:50
PROVIDERS: ATTEND Specialist
PROC: 0SRB0JA Replacement of Left Hip Joint with Synthetic Substitute, Uncemented, Open Approach (ICD-10-PCS; principal; 2021-02-04 06:45)
DX: M16.12 Unilateral primary osteoarthritis, left hip (principal); G89.18 Other acute postprocedural pain; C91.10 Chronic lymphocytic leukemia of B-cell type not having achieved remission
CPT/HCPCS: 01214; 64447; 64450; 72170; 76942; 97161; C1713; C1776; C9803; J0131; J0690; J1100; J1885; J2001; J2250; J2405; J2704; J2795; J7040; J7121; U0003

== ENCOUNTER 2023-05-26 11:32 | Emergency (ER) | payer MEDICARE, OTHER ==
[~2023-05-26] VITALS: Ht 167.6 cm; Wt 74.7 kg
[~2023-05-26 11:32] MED LIST changes: +ACETAMINOPHEN500 MG PO; +CELECOXIB200 MG PO; +OXYCODONE HCL5 MG PO; +SENNA LAX8.6 MG PO; +XARELTO10 MG PO
--- OUTSIDE RECORDS SUMMARY | 2023-05-26 11:36 | XMS ---
PreManage Notification: ERNESTO FRASER Security Eviscerator Events No recent Security Events currently on file CRITERIA MET - PDMP CARE PROVIDERS BRANDON COONEY [facility] 12/01/2019-Current PHONE: Unknown Sandro has no Care Guidelines for this patient. E.Shellie VISIT COUNT (12 MO.) 1 KRISTAN Dwyer TOTAL 1 NOTE: Visits indicate total known visits. ED/UCC VISIT TRACKING (12 MO.) 05/26/2023 11:33 [facility]ST[facility] Morales [place] TYPE: Emergency COMPLAINT: - LEGS NOT WORKING INPATIENT VISIT TRACKING (12 MO.) No inpatient visits to display in this time frame [email or web address]
[2023-05-26 13:31] LABS: RDW 15.3 (10.5-15.0)
[2023-05-26 13:34] LABS: HEMATOCRIT 40.9 % (35.0-50.0); HEMOGLOBIN 13.2 g/dL (12.0-18.0); MCH 31.3 (27-36); MCHC 32.4 g/dl (30-36); MCV 96.5 fl (81-99); PLATELET COUNT 164 K/uL (140-440); RBC 4.23 M/ul (4.3-5.7)
[2023-05-26 13:50] LABS: ALBUMIN 3.3 g/dL (3.4-5.0); ALBUMIN/GLOBULIN RATIO 1.03 (1.1-2.4); ANION GAP 12.5 (7-21); BILIRUBIN, TOTAL 0.7 ng/dL (0.2-1.0); BUN/CREATININE RATIO 18.6 (6.0-28.6); CREATININE, SERUM 0.86 mg/dL (0.55-1.02); MAGNESIUM 2.2 mg/dL (1.8-2.4); POTASSIUM 4.5 mmol/L (3.5-5.1); PROTEIN, TOTAL 6.5 g/dL (6.4-8.2)
[2023-05-26 14:01] LABS: EOSINOPHILS, MANUAL DIFF 1; LYMPHOCYTES, MANUAL DIFF 74; MONOCYTES, MANUAL DIFF 2; NEUTROPHILS, MANUAL DIFF 23
[2023-05-26 14:43] LABS: BILIRUBIN, URINE NEGATIVE (negative); BLOOD/HGB, URINE TRACE-I (Negative); KETONE, URINE NEGATIVE (Negative); LEUK ESTERASE, URINE NEGATIVE (negative); NITRITE, URINE NEGATIVE (negative); PH, URINE 5.5 (5-7)
[2023-05-26 14:51] LABS: BACTERIA, URINE NONE SEEN /hpf (negative); CASTS, URINE NONE SEEN \\lpf; COLLECTION TYPE, URINE CLEAN CATCH; CRYSTALS, URINE NONE SEEN (0-1+); EPITHELIAL CELLS, URINE NONE SEEN /lpf (0-1+); RED BLOOD CELLS, URINE 0-1 /hpf (0-5); REFLEX CULTURE, URINE No (No)
[2023-05-26] MEDS ORDERED: CEPHALEXIN500 MG PO (14:57)
[2023-05-26] MEDS ORDERED: NITROFURANTOIN100 M1 PO (14:57)
[2023-05-26 15:30] VITALS: BP 141/70
[2023-05-26 15:43] LABS: ERYTHROCYTE SEDIMENTATION RATE 2
== END 2023-05-26 15:31 | disposition home or self-care (01) ==
LOC: ED 11:32
PROVIDERS: Emergency Medicine
DX: R53.1 Weakness (principal); R51.9 Headache, unspecified; C91.10 Chronic lymphocytic leukemia of B-cell type not having achieved remission; Z79.899 Other long term (current) drug therapy
CPT/HCPCS: 36415; 70450; 80053; 81001; 82553; 83735; 85025; 85651; 86140; 99284-25

== ENCOUNTER 2024-07-20 10:05 | Emergency (ER) | payer MEDICARE, OTHER ==
[~2024-07-20] VITALS: Ht 167.6 cm; Wt 80.4 kg
[~2024-07-20 10:05] MED LIST changes: +CEPHALEXIN500 MG PO; +NITROFURANTOIN100 M1 PO
[2024-07-20 11:25] LABS: HEMATOCRIT 42.7 % (35.0-50.0); HEMOGLOBIN 14.4 g/dL (12.0-18.0); MCH 31.4 (27-36); MCHC 33.8 g/dl (30-36); MCV 92.7 fl (81-99); PLATELET COUNT 182 K/uL (140-440); RDW 14.9 (10.5-15.0)
[2024-07-20 11:36] LABS: INR 1.03 (0.80-1.30); PROTIME 12.8 Sec (11.2-14.2)
[2024-07-20 11:40] LABS: BANDS, MANUAL DIFF 2; LYMPHOCYTES, MANUAL DIFF 66; MONOCYTES, MANUAL DIFF 1; NEUTROPHILS, MANUAL DIFF 31
[2024-07-20 11:42] LABS: ALBUMIN 3.9 g/dL (3.4-5.0); ALBUMIN/GLOBULIN RATIO 1.18 (1.1-2.4); ANION GAP 9.9 (7-21); BILIRUBIN, TOTAL 0.7 mg/dL (0.2-1.0); BUN/CREATININE RATIO 18.88 (6.0-28.6); CREATININE, SERUM 0.9 mg/dL (0.55-1.02); POTASSIUM 3.9 mmol/L (3.5-5.1); PROTEIN, TOTAL 7.2 g/dL (6.4-8.2)
[2024-07-20 13:50] VITALS: BP 145/76
== END 2024-07-20 13:50 | disposition home or self-care (01) ==
LOC: ED 10:05
PROVIDERS: Emergency Medicine
DX: S06.5X0A Traumatic subdural hemorrhage without loss of consciousness, initial encounter (principal); W18.30XA Fall on same level, unspecified, initial encounter; Z79.2 Long term (current) use of antibiotics
CPT/HCPCS: 36415; 70450; 80053; 85025; 85610; 99284-25; G0480

== ENCOUNTER 2024-08-15 12:56 | Emergency (ER) | payer MEDICARE, OTHER ==
[~2024-08-15] VITALS: Ht 167.6 cm; Wt 77.3 kg
--- OUTSIDE RECORDS SUMMARY | 2024-08-15 13:03 | XMS ---
PreManage Notification: ERNESTO FRASER Security Crude Tester Events No recent Security Events currently on file CRITERIA MET - [facility] - 2 Visits in 30 Days CARE PROVIDERS BRANDON COONEY [facility] 12/01/2019-Current PHONE: Unknown MARISSA WADSWORTH Current PHONE: [phone] Sandro has no Care Guidelines for this patient. Suhas VISIT COUNT (12 MO.) 2 [facility] TOTAL 2 NOTE: Visits indicate total known visits. ED/UCC VISIT TRACKING (12 MO.) 08/15/2024 12:57 [facility] [place] TYPE: Emergency COMPLAINT: - LOSS OF APPETITE 07/20/2024 10:05 [facility]ST[facility] Morales [place] TYPE: Emergency COMPLAINT: - FALL DIAGNOSES: - Fall on same level, unspecified, initial encounter - group home (current) use of antibiotics - Traumatic subdural hemorrhage without loss of consciousness, initial encounter - Unspecified injury of head, initial encounter INPATIENT VISIT TRACKING (12 MO.) No inpatient visits to display in this time frame [email or web address]
[2024-08-15 14:16] LABS: BASOPHILS 0.9 % (0-2); HEMATOCRIT 40.4 % (35.0-50.0); HEMOGLOBIN 13.8 g/dL (12.0-18.0); LYMPHOCYTES 37.2 % (24-44); MCH 31.2 (27-36); MCHC 34.2 g/dl (30-36); MCV 91.3 fl (81-99); MONOCYTES 5.2 % (0-12); NEUTROPHILS 56.7 % (39-80); PLATELET COUNT 180 K/uL (140-440); RBC 4.42 M/ul (4.3-5.7); RDW 13.9 (10.5-15.0)
[2024-08-15 14:24] LABS: BILIRUBIN, URINE POSITIVE (negative); BLOOD/HGB, URINE MODERATE (Negative); KETONE, URINE TRACE (Negative); LEUK ESTERASE, URINE SMALL (negative); NITRITE, URINE POSITIVE (negative)
[2024-08-15 14:32] LABS: ALBUMIN 3.4 g/dL (3.4-5.0); ALBUMIN/GLOBULIN RATIO 0.89 (1.1-2.4); ANION GAP 8.9 (7-21); BILIRUBIN, TOTAL 1.5 mg/dL (0.2-1.0); CALCIUM 8.6 mg/dL (8.5-10.1); POTASSIUM 3.9 mmol/L (3.5-5.1); PROTEIN, TOTAL 7.2 g/dL (6.4-8.2)
[2024-08-15 14:37] LABS: WHITE BLOOD CELLS, URINE >50 /HPF (0-5)
[2024-08-15 14:39] LABS: BACTERIA, URINE 3+ /hpf (negative); CRYSTALS, URINE NONE SEEN (0-1+)
[2024-08-15 14:40] LABS: CASTS, URINE NONE SEEN \\lpf; COLLECTION TYPE, URINE CLEAN CATCH; REFLEX CULTURE, URINE No (No)
[2024-08-15] MEDS ORDERED: CEPHALEXIN500 M1 PO (17:42)
[2024-08-15] MEDS ORDERED: CEPHALEXIN MONOHYDRATE 500 MG CAP PO ONE (17:45)
[2024-08-15 17:50] VITALS: BP 124/83
[2024-08-15] MEDS ORDERED: ACETAMINOPHEN 325 MG TAB PO ONE (18:00)
== END 2024-08-15 17:50 | disposition home or self-care (01) ==
LOC: ED 12:56
PROVIDERS: Emergency Medicine
DX: N39.0 Urinary tract infection, site not specified (principal); Z79.899 Other long term (current) drug therapy
CPT/HCPCS: 36415; 71045; 80053; 81001; 85025; 86140; 99284-25; A9270